=== PATIENT | male | born 1995 | race Caucasian/White ===

== ENCOUNTER 2020-06-05 03:04 | Inpatient (IN) | payer OTHER ==
[~2020-06-05] VITALS: Ht 188 cm; Wt 71.9 kg
[2020-06-05 03:22] LABS: PO2 Arterial 306 mmHg (80-100)
[2020-06-05 03:23] LABS: PCO2 Arterial 103 mmHg (35-45); pH Blood Arterial 6.86 (7.35-7.45)
[2020-06-05 03:25] LABS: Calcium, Ionized (POC) 1.23 mmol/L (1.10-1.46); Chloride (POC) 102 mmol/L (98-108); Creatinine (POC) 1.4 mg/dL (0.8-1.3); Glucose (ISTAT POC) 216 mg/dL (70-99); Hemoglobin (POC) 14.6 g/dL (13.5-17.5); Potassium (POC) 4.7 mmol/L (3.5-5.5); Sodium (POC) 135 mmol/L (135-148); Total CO2 (POC) 21 mmol/L (21-32)
[2020-06-05 03:33] LABS: BASOPHILS ABSOLUTE AUTO 0.18 K/mm3 (0.00-0.23); BASOPHILS PERCENT AUTO 2 % (0-2); EOSINOPHILS ABSOLUTE AUTO 1.13 K/mm3 (0.00-0.68); EOSINOPHILS PERCENT AUTO 9 % (0-6); Hematocrit 46.7 % (37.0-53.0); Hemoglobin 13.4 g/dL (13.5-17.5); IMMATURE GRAN ABSOLUTE AUTO 0.16 K/mm3 (0.00-0.10); IMMATURE GRAN PERCENT AUTO 1 % (0-1); LYMPHOCYTES ABSOLUTE AUTO 5.39 K/mm3 (0.84-5.20); LYMPHOCYTES PERCENT AUTO 45 % (21-46); MONOCYTES ABSOLUTE AUTO 0.89 K/mm3 (0.16-1.47); MONOCYTES PERCENT AUTO 7 % (4-13); Mean Corpuscular HGB 28.3 pg (26.0-34.0); Mean Corpuscular HGB Conc 28.7 g/dL (31.5-36.5); Mean Corpuscular Volume 99 fL (80-100); NEUTROPHILS ABSOLUTE AUTO 4.31 K/mm3 (1.96-9.15); NEUTROPHILS PERCENT AUTO 36 % (41-73); Platelet Count 332 K/mm3 (150-400); RDW Coefficient Variation 12.7 % (11.7-14.2); RDW Standard Deviation 46.4 fL (35.1-46.3); Red Blood Cell Count 4.74 M/mm3 (4.30-5.90); White Blood Cell Count 12.06 K/mm3 (4.00-11.30)
[2020-06-05 03:46] LABS: Source, Urine Catheter
[2020-06-05 03:48] LABS: Alanine Aminotransfer (ALT/SGP 86 U/L (12-78); Albumin, Blood 3.1 g/dL (3.4-5.0); Albumin/Globulin Ratio 0.8 (0.8-1.8); Alk Phos 140 U/L (50-136); Anion Gap 16 mmol/L (6-16); Aspartate Aminotrans (AST/SGOT 114 U/L (12-37); Bilirubin, Total 0.5 mg/dL (0.1-1.0); Blood Urea Nitrogen 20 mg/dL (8-24); Bun/Creatinine Ratio 15.7 (12.0-20.0); CO2, Blood 19 mmol/L (21-32); Chloride, Blood 104 mmol/L (98-108); Creatinine, Blood 1.27 mg/dL (0.60-1.20); Globulin, Blood 3.7 g/dL (2.2-4.0); Glomerular Filtration Rate 53 (60-); Glucose, Blood 227 mg/dL (70-99); Potassium, Blood 4.8 mmol/L (3.5-5.5); Sodium, Blood 139 mmol/L (136-145); Total Protein, Blood 6.8 g/dL (6.4-8.2); Troponin I <0.015 ng/mL (0.000-0.040)
[2020-06-05 03:48] LABS: Bilirubin, Urine Neg (Neg); Blood, Urine 3+ (Neg); Glucose Qualitative, Urine Neg (Neg); Ketones, Urine 1+ (Neg); Leukocyte Esterase, Urine Neg (Neg); Nitrite, Urine Neg (Neg); Protein, Urine 1+ (Neg); Specific Gravity, Urine 1.025 (1.003-1.022); Urobilinogen, Urine NORM (Normal)
[2020-06-05 03:51] LABS: Appearance, Urine Clear (Clear); Color, Urine Yellow (P-Yellow)
[2020-06-05 04:01] LABS: U Amphetamine Screen DETECTED; U Barbituate Screen Not Detected; U Benzodiazapine Screen Not Detected; U Buprenorphine Screen Not Detected; U Cannabinoids Screen Not Detected; U Cocaine Screen Not Detected; U Methadone Screen Not Detected; U Methamphetamine Screen DETECTED; U Opiates Screen DETECTED; U Oxycodone Screen Not Detected; U Phencyclidine Screen Not Detected; U Propoxyphene Screen Not Detected
[2020-06-05 04:02] LABS: Amorphous Light (0-Heavy); Bacteria Mod /hpf; Spermatozoa Few /hpf; Squamous Epithelial Cells Few /hpf (Few); White Blood Cells, Urine 0-2 /hpf (0-5)
[2020-06-05 04:06] LABS: PCO2 Arterial 59.9 mmHg (35-45); PO2 Arterial 80.3 mmHg (80-100); pH Blood Arterial 7.21 (7.35-7.45)
[2020-06-05 04:07] LABS: CPK Creatine Kinase 663 U/L (39-308)
[2020-06-05 04:51] LABS: Influenza A, PCR Negative (NEGATIVE); Influenza B, PCR Negative (NEGATIVE); Resp Syncytial Virus, PCR Negative (NEGATIVE); SARS-Cov-2 (COVID-19) PCR, MMC Negative (NEGATIVE)
[2020-06-05 05:40] LABS: Calcium, Ionized (POC) 1.01 mmol/L (1.10-1.46); Chloride (POC) 102 mmol/L (98-108); Creatinine (POC) 1.1 mg/dL (0.8-1.3); Glucose (ISTAT POC) 111 mg/dL (70-99); Hemoglobin (POC) 11.6 g/dL (13.5-17.5); Potassium (POC) 4.5 mmol/L (3.5-5.5); Sodium (POC) 140 mmol/L (135-148); Total CO2 (POC) 25 mmol/L (21-32)
--- NOTE | 2020-06-05 07:06 | NUR ---
PT ARRRIVED TO UNIT AT 0628 VIA STRETCHER. RECEVIED REPORT FROM PARTH JONES RN. PT IS INTUBATED, ETT 7.0, 27 AT THE LIP PER REPORT. PT IS SEDATED WITH 20MCG/KG/MIN OF PROPOFOL. LUNG SOUNDS ARE WHEZZY T/O. PT CONNECTED TO HEART MONITOR, SBP AT 160, HR IN THE 100'S. OGT TO LIS, COFFEE GROUND EMESIS NOTED. CENTRAL LINE TO RIGHT IJ. TEMP MOSS PATENT AND DRAINING TO GRAVITY. ZOSYN AND PROTONIX INITIATED. BEDSIDE REPORT GIVEN TO PIYUSH DYKES AT 0650.
[2020-06-05 07:32] LABS: PCO2 Arterial 46.6 mmHg (35-45); PO2 Arterial 78.5 mmHg (80-100); pH Blood Arterial 7.37 (7.35-7.45)
--- NOTE | 2020-06-05 07:34 | NUR ---
Received in room report from Tory Bautista. patient is intubated and sedated. He has 7.0 ET and 27 cm at lips with vent settings of AC 20, TV 500, FiO2 35% and PEEP 5.0 with sats >90%. He has frequent jerking motion of upper body head and extremities. He is very stiff with care. He had large liquid brown BM and placed rectal tube after 3 clean ups of liquid stool. He follows no directions and does not react to verbal or painful stimuli. He has bilateral 18 ga IV's AC's dressings intact and sites WNL's and are flushed and SL'd. He has 18ga LINDA IV and is infusing D5 Bicarb at 150 ml/hr. He has RIJ dressing intact and site WNL's and is infusing Propofol at 40 mcg/kg/min, and Protonix at 10ml/hr. He has 16 Fr Richardson draining to gravity clear yellow urine and temp of 97.6.
--- NOTE | 2020-06-05 10:39 | NUR ---
Dr John consulted and was in room assessing patient. She cjanges AC to 16 and dc D5 bicarb and Protonix. He remains on Propofol and vent settings AC 16, TV 500, FiO2 35, PEEP 5.0 and sats >90%. He continues to hiccup and decorticate posture. Richardson continues to have good output yellow urine to gravity.
--- NOTE | 2020-06-05 11:16 | NUR ---
Echocardiogram completed.
--- NOTE | 2020-06-05 11:20 | NUR ---
Patient LE starting flailing and vent alarm went of and ran into room and he was constantly hiccuping, medicated with Ativan per MAR and reduced slightly. Pupils now are 4 and very sluggish. Rectal tube continues with brown liquid stool. He remains tachy low 100 and systolic 120-130. No vent setting changes and sats >90%.
--- NOTE | 2020-06-05 12:00 | NUR ---
Patient remains sitting up in bed with CPAP in place same settings. He ate 100% of lunch and is watching TV with sats >90%. Using urinal appropriately had 300 mls sohma colored urine. VSS, See EMR. Patient denies any current needs or pain intervention. Dr John was in seeing patient, no new orders.
[2020-06-05 12:50] LABS: Creatine Kinase MB 11.2 ng/mL (0.0-3.6); Creatine Kinase MB Index 1.4 (0.0-4.0)
--- NOTE | 2020-06-05 13:32 | NUR ---
Patient wants to remain up in bed with CPAP in place and will prone self in a little bit. VSS, See EMR. No other significant changes.
--- NOTE | 2020-06-05 14:00 | NUR ---
No significant changes with patient. TF started , Pivot 1.5 at 25 ml with 30 ml water flushes q4. Patients pupils are 4 and still sluggish. Hiccups less and less posturing dicorticate. VSS, See EMR.
--- NOTE | 2020-06-05 16:38 | NUR ---
No chnages in vent or gtt setting. Patient has been rest quietly. he has occassional hiccups and intermitent dicorticate posture movements. He has Propofol at 40 mcg/kg/min, ABX. TF pivot 1.5 at 25ml/hr. Richardson and rectal tube remains patent. His temp 98.8
--- NOTE | 2020-06-05 19:00 | NUR ---
ASSUMED CARE NOTE: ASSUMED CARE OF PT AT 1900, RECEVIED REPORT FROM PIYUSH DYKES. PT IS INTUBATED AND SEDATED WITH PROPOFOL AT 40MCG/KG/MIN. VENT SETTINGS AT AC16/500/5/35% 96% SPO2. SMALL AMOUNT OF CLEAR SECRETIONS NOTED VIA ETT. PT GRIMICES DURING ORAL CARE. PT WILL BECOME AGITATED WITH TURNS, WILL BEGIN TO COUGH AND LEAN FORWARD FORCEFULLY. WILL SETTLE DOWN ON HIS OWN AFTER A FEW MINUTES. PT HAS A TWITCH T/O BODY EVERY ONCE IN AWHILE, PHYSICAN AWARE. PT IS IN SINUS TACH HR BETWEEN 100-105. TUBE FEED RUNNING AT 25ML/HR, WILL INCREASE TO GOAL RATE OF 35ML/HR AT 2300. RESIDUAL LESS THAN 5ML. PT REQUIRES FREQUENT ORAL SUCTION, EXCESS OF SALIVA NOTED. BT HYPERACTIVE IN ALL QUADRANTS. RECTAL TUBE IN PLACE, DRAINING LIQUID BROWN STOOL. MOSS PATNET, DRAINING YELLOW CLEAR URINE. SCD'S IN PLACE. WILL CONTINUE TO MONITOR PT T/O SHIFT.
[2020-06-05 20:09] LABS: Creatine Kinase MB Index 1.3 (0.0-4.0)
--- NOTE | 2020-06-06 02:45 | NUR ---
UPDATE: PT BECAME AGITATED WITH TURN, UNABLE TO TOLERATE VENT, COUGHING. DID NOT OPEN EYES, UNABLE TO FOLLOW COMMANDS. ATIVAN GIVEN FOR VENT COMPLIANCE AND PROPOFOL INCREASED TO 50MCG/KG/MIN.
[2020-06-06 04:16] LABS: BASOPHILS ABSOLUTE AUTO 0.04 K/mm3 (0.00-0.23); BASOPHILS PERCENT AUTO 0 % (0-2); EOSINOPHILS ABSOLUTE AUTO 0.25 K/mm3 (0.00-0.68); EOSINOPHILS PERCENT AUTO 2 % (0-6); Hematocrit 39.4 % (37.0-53.0); Hemoglobin 12.8 g/dL (13.5-17.5); IMMATURE GRAN ABSOLUTE AUTO 0.03 K/mm3 (0.00-0.10); IMMATURE GRAN PERCENT AUTO 0 % (0-1); LYMPHOCYTES PERCENT AUTO 9 % (21-46); MONOCYTES ABSOLUTE AUTO 0.64 K/mm3 (0.16-1.47); MONOCYTES PERCENT AUTO 6 % (4-13); Mean Corpuscular HGB 28.3 pg (26.0-34.0); Mean Corpuscular HGB Conc 32.5 g/dL (31.5-36.5); Mean Platelet Volume 8.6 fL (9.1-12.4); NEUTROPHILS ABSOLUTE AUTO 9.07 K/mm3 (1.96-9.15); NEUTROPHILS PERCENT AUTO 82 % (41-73); Platelet Count 252 K/mm3 (150-400); RDW Coefficient Variation 13.2 % (11.7-14.2); RDW Standard Deviation 41.2 fL (35.1-46.3); Red Blood Cell Count 4.52 M/mm3 (4.30-5.90); White Blood Cell Count 11.03 K/mm3 (4.00-11.30)
[2020-06-06 04:19] LABS: Mean Corpuscular Volume 87 fL (80-100)
[2020-06-06 04:28] LABS: Base Excess Venous 4.6 mmol/L; Bicarbonate Venous 27.7 mmol/L (24.0-30.0); PCO2 Venous 48.2 mmHg (38-42); PO2 Venous 113 mmHg (38-42)
[2020-06-06 04:33] LABS: Alanine Aminotransfer (ALT/SGP 102 U/L (12-78); Albumin, Blood 2.8 g/dL (3.4-5.0); Albumin/Globulin Ratio 0.8 (0.8-1.8); Alk Phos 160 U/L (50-136); Anion Gap 6 mmol/L (6-16); Aspartate Aminotrans (AST/SGOT 68 U/L (12-37); Bilirubin, Total 0.7 mg/dL (0.1-1.0); Blood Urea Nitrogen 12 mg/dL (8-24); Bun/Creatinine Ratio 14.4 (12.0-20.0); CO2, Blood 30 mmol/L (21-32); Calcium, Blood 8.2 mg/dL (8.5-10.1); Chloride, Blood 105 mmol/L (98-108); Creatinine, Blood 0.83 mg/dL (0.60-1.20); Globulin, Blood 3.6 g/dL (2.2-4.0); Glomerular Filtration Rate >60 (60-); Glucose, Blood 131 mg/dL (70-99); Magnesium, Blood 2.1 mg/dL (1.6-2.4); Phosphorus, Blood 3.7 mg/dL (2.5-4.9); Potassium, Blood 4.2 mmol/L (3.5-5.5); Sodium, Blood 141 mmol/L (136-145); Total Protein, Blood 6.4 g/dL (6.4-8.2)
--- NOTE | 2020-06-06 06:03 | NUR ---
SHIFT SUMMARY: SEE PREVIOUS NOTES. PT CONTINUES TO BE SEDATED WITH PROPOFOL AT 50MCG/KG/MIN. PT RECEVIED ATIVAN ONCE THIS SHIFT FOR AGITATION, GOOD EFFECT. PT CONTINUES TO TWITCH T/O ALL EXTREMITIES FROM TIME TO TIME. RESPONSIVE TO PAINFUL STIMILI. NO SEDATION VACATION PER . PT CONTINUES TO BE ON VENT WITH NO CHANGES TO SETTINGS AC16/500/5/25% NO SECRETIONS NOTED VIA ETT. PT HAVING LARGE AMOUNTS OF CLEAR ORAL SECRETIONS. PT HAS BEEN IN SINUS TACH T/O SHIFT HR BETWEEN 100-110. TUBE FEEDS RUNNING AT GOAL, 35ML/HR, 0 RESIDUAL NOTED AT 0400. MOSS PATENT DRAINING TO GRAVITY, CLEAR YELLOW IN COLOR, 2000ML OUTPUT. SCD'S IN PLACE. CENTRAL LINE TO RIJ DRESSING CHANGED THIS SHIFT. WILL CONTINUE TO MONITOR PT UNTIL REPORT IS GIVEN TO ONCOMING SHIFT.
--- NOTE | 2020-06-06 07:50 | NUR ---
PT SEDATED ON PROPOFOL AT 50MCG FOR [facility] VENT. AC16, 500, PEEP 5, FIO2 @ 25%. PT HAS NORMAL PLANTAR REFLEX, WITHDRAWALS FROM PAIN. PT HAS COUGH, SWALLOW, MILD GAG. PT HAS BILAT NYSTAGMUS. PUPILS ARE SLUGGISH; PT HAS +DOLLS EYES BUT ARE SLOW TO MOVE. PT IS EDEMATOUS TO ALL EXTREMITIES. HANDS ARE DUSKY BUT WARM. LUNGS W INSP AND EXP WHEEZES T/O. SATS >98%. + BT'S W MINIMAL RESIDUAL. PT IN SINUS TACH RATE ~105, BP STABLE. MOSS TEMP PROBE 99.5. WILL PLACE PT ON SED VAC THIS AM. DR REED IN THIS AM; FULL UPDATE GIVEN. NOTIFIED THAT PT IS ON PO PROTONIX THAT CAN NOT BE CRUSHED, AND THAT THERE ARE NO ORDERS FOR NEB TX.
--- NOTE | 2020-06-06 08:52 | NUR ---
DR HOLMAN IN UNIT AND GIVEN UPDATE. PROPOFOL DECREASED TO 20MCG.
--- NOTE | 2020-06-06 09:03 | NUR ---
PROPOFOL PLACED ON STANDBY. AFTER 5 MIN, CHIN TWITCHING, EYES DOWNWARD RIGHT GAZE W INCREASED NYSTAMUS. DOES NOT FOLLOW DIRECTIONS AT THIS TIME
--- NOTE | 2020-06-06 09:47 | NUR ---
DR HOLMAN IN TO SEE PT. PT NO LONGER SHOWS PLANTER REFLEX. NO MOVEMENT TO EXTREMITIES NOTED. EYES REMAIN UNCHANGED FROM PREVIOUS ASSESSMENT. EEG TO BE ORDERED. PROPOFOL REMAINS OFF.
--- NOTE | 2020-06-06 10:28 | NUR ---
Telephone call received from the principals grandmother. She was emotionally distraught and reqesting information as to the principals clinical situation and recovery potential. I offered therapeutic listening and words of consolation and encouragement. She responded favorably to the attention and showed clear signs of de-escelation. I provided her with the ICU Nursing Station contact number and asked her to have her daughter (the principals mother) reach out and establish contact with the hospital to collect an update on her grandsons status. She was very appreciative of the support and direction.
--- NOTE | 2020-06-06 10:30 | NUR ---
DONOR LINE CONTACTED. NO CHANGE IN NEURO ASSESSMENT. INVENTORY SPECIALIST NOTIFIED. CT SCAN OF HEAD TO BE REPEATED TOMORROW.
--- NOTE | 2020-06-06 10:48 | NUR ---
PT HAD SEVERE COUGHING/GAGGING REACTION TO TURNING PT. PT RETCHING, FACE/NECK TURNED BRIGHT RED, COPIOUS CLEAR VISCOUS SECRETIONS SUNCTIONED FROM MOUTH AND ETT. PT DID NOT MOVE ANY EXTRMITIES DURING EVENT, TORSO DID FLEX FORWARD. PT STOPPED COUGHING WITHIN 2 MIN AFTER TURN. NO OTHER CHANGE IN NEURO ASSESSMENT.
--- NOTE | 2020-06-06 11:40 | NUR ---
PT POSITIONED SUPINE W HOB AT 30 FOR EEG. CORN POPPER AT BEDSIDE. PT'S MOTHER GIVEN FULL UPDATE OVER PHONE AND WILL BE IN TODAY TO SEE HER SON. NO CHANGE IN NEURO ASSESSMENT.
--- NOTE | 2020-06-06 13:34 | NUR ---
EEG COMPLETE. REPORT FAXED TO DR BARRIGA. PT HAS TEMP 101.3; DR HOLMAN NOTIFIED, MAY BE CENTRAL RELATED TEMP. POSSIBLE LP PLANNED FOR TOMORROW; LOVENOX TO BE HELD TOMORROW. TYLENOL TO BE ORDERED. ICE PACKS AND FAN PLACED TO PT.
--- NOTE | 2020-06-06 14:25 | NUR ---
DR RODRIGUEZ CALLED DR HOLMAN R/T EEG. POSSIBLE SEIZURE ACTIVITY. ATIVAN 4MG IVP GIVEN PER JOSH PEPE TO BE GIVEN.
--- NOTE | 2020-06-06 14:29 | NUR ---
IMMEDIATELY AFTER ATIVAN GIVEN, CHIN STOPPED QUIVERING, EYES RETURNED TO A MORE NEUTRAL POSITION
--- NOTE | 2020-06-06 16:14 | NUR ---
Spiritual care note: I was present when mom, April, arrived. She was quite tearful and asked a lot of questions. Stayed with April as physician explained Jenaro's brain injury. April appeared to understand. Prayer provided, as well as theraputic listening to life story. Gentle financial health counselor was well-recieved. We had an easy rapport and I will remain available. For now, family is waiting another day or so to see if Jenaro improves.
--- NOTE | 2020-06-06 17:59 | NUR ---
ATVAN 2MG GIVEN FOR CHIN/JAW QUIVERING/TWITCHING WITH EYES IN DOWNWARD RIGHT GAZE/NYSTAGMUS/TWITCHING. FAMILY AT BEDSIDE.
--- NOTE | 2020-06-06 19:00 | NUR ---
ASSUMED CARE NOTE: ASSUMED CARE OF PT AT 1900, RECEVIED REPORT FROM DEEJAY DYKES. PT IS NOT SEDATED, NO RESPONSE TO VERBAL/PAINFUL STIMULI. PT HAS CORNEAL REFLEX, GAG REFLEX, PLANTER REFLEX NOTED. PT IS ON VENT WITH SETTINGS AC16/500/5/30% , LARGE AMOUNTS OF THICK WHITE SECRETIONS. LARGE AMOUNTS OF CLEAR ORAL SECRETIONS NOTED. PT IN SINUS TACH WITH HR IN THE 110'S. TF RUNNING AT 35ML/HR, RESIDUAL LESS THAN 10 AT THIS TIME. MOSS PATENT DRAINING TO GRAVITY. RECTAL TUBE IN PLACE, IF NO BM NOTED, WILL DC. BED AT LOWEST LEVEL. WILL CONTINUE TO MONITOR PT.
--- NOTE | 2020-06-06 19:28 | NUR ---
SOME IMPROVEMENT OF EYE POSITION AND JAW TREMORS AFTER ATIVAN. BEDSIDE REPORT GIVEN.
--- NOTE | 2020-06-07 | NUR ---
UPDATE: BILAT SWR DC'd DUE TO PT NOT MOVING IN BED, OR RESPONDING TO VERBAL OR PAINFUL STIMILI. PT CONTINUES TO HAVE LARGE AMOUNTS OF SECRETIONS VIA ETT. VENT SETTINGS AC20/500/5/25%, FiO2 AT 93% PT HAS BEEN MEDICATED WITH ATIVAN THIS SHIFT, FOR SEZUIRE ACTIVITY. TUBE FEED TUBING AND CANISTER CHANGED. BED BATH COMPLETE.
--- NOTE | 2020-06-07 03:15 | NUR ---
PT TO HEAD CT SCAN WITH THIS NURSE AND RT AT BEDSIDE. PT BACK TO ROOM AT 0330.
[2020-06-07 04:31] LABS: BASOPHILS ABSOLUTE AUTO 0.05 K/mm3 (0.00-0.23); BASOPHILS PERCENT AUTO 0 % (0-2); EOSINOPHILS ABSOLUTE AUTO 0.07 K/mm3 (0.00-0.68); EOSINOPHILS PERCENT AUTO 1 % (0-6); Hematocrit 41.6 % (37.0-53.0); Hemoglobin 13.2 g/dL (13.5-17.5); IMMATURE GRAN ABSOLUTE AUTO 0.03 K/mm3 (0.00-0.10); IMMATURE GRAN PERCENT AUTO 0 % (0-1); LYMPHOCYTES ABSOLUTE AUTO 1.12 K/mm3 (0.84-5.20); LYMPHOCYTES PERCENT AUTO 10 % (21-46); MONOCYTES ABSOLUTE AUTO 0.81 K/mm3 (0.16-1.47); MONOCYTES PERCENT AUTO 7 % (4-13); Mean Corpuscular HGB 27.7 pg (26.0-34.0); Mean Corpuscular HGB Conc 31.7 g/dL (31.5-36.5); Mean Corpuscular Volume 87 fL (80-100); Mean Platelet Volume 8.6 fL (9.1-12.4); NEUTROPHILS ABSOLUTE AUTO 9.41 K/mm3 (1.96-9.15); NEUTROPHILS PERCENT AUTO 82 % (41-73); Platelet Count 294 K/mm3 (150-400); RDW Coefficient Variation 13.4 % (11.7-14.2); RDW Standard Deviation 43.1 fL (35.1-46.3); Red Blood Cell Count 4.76 M/mm3 (4.30-5.90); White Blood Cell Count 11.49 K/mm3 (4.00-11.30)
[2020-06-07 04:50] LABS: PCO2 Arterial 35.9 mmHg (35-45); pH Blood Arterial 7.44 (7.35-7.45)
[2020-06-07 04:50] LABS: Anion Gap 6 mmol/L (6-16); Blood Urea Nitrogen 12 mg/dL (8-24); Bun/Creatinine Ratio 13.5 (12.0-20.0); CO2, Blood 25 mmol/L (21-32); Calcium, Blood 8.4 mg/dL (8.5-10.1); Chloride, Blood 107 mmol/L (98-108); Creatinine, Blood 0.89 mg/dL (0.60-1.20); Glomerular Filtration Rate >60 (60-); Glucose, Blood 120 mg/dL (70-99); Magnesium, Blood 1.9 mg/dL (1.6-2.4); Phosphorus, Blood 3.7 mg/dL (2.5-4.9); Potassium, Blood 4.7 mmol/L (3.5-5.5); Sodium, Blood 138 mmol/L (136-145)
--- NOTE | 2020-06-07 05:28 | NUR ---
SHIFT SUMMARY: SEE PREVIOUS NOTES. NO CHANGES WITH NEURO STATUS. VENT SETTINGS AC16/500/5/25% PT HAVING SIGNIFICANT AMOUNT OF SECRETIONS VIA ETT AND ORAL. PT WILL DESATURATED INTO THE 80% WHEN NEEDED TO BE SUCTIONED, RECOVERS QUICKLY. PT HAS BEEN IN SINUS TACH WITH HR BETWEEN 100-120. BP STABLE. PT RECEVIED ACETAMINOPHEN TWICE THIS SHIFT, TMAX 101.3 TUBE FEED RUNNING AT GOAL 35ML/HR, HIGHEST RESIDUAL 40ML. RECTAL TUBE DC'd THIS SHIFT. FOELY PATENT DRAINING TO GRAVITY, CLEAR YELLOW URINE. WILL CONTINUE TO MONITOR PT UNTIL REPORT IS GIVEN TO ONCOMING SHIFT.
--- NOTE | 2020-06-07 09:12 | NUR ---
PT ON [facility] VENT FOR AIRWAY PROTECTION FOLLOWING CARDIAC ARREST W ANOXIC BRAIN INJURY. PT UNRESTRAINED. NO SPONTANEOUS MOVEMENT NOTED TO EXTREMITIES. PT DOES WITHDRAWAL FOOT WHEN PLANTAR REFLEX ELICTED, TOES DO NOT FAN OUT OR LFEX. PT HAS + COUGH, GAG, AND SWALLOW. PT HAS STRONG COUGH, GAG RESPONSE W FLEXION AT HIPS W ORAL CARE/SUCTIONING. COPIOUS AMTS OF VISCOUS CLEAR SECRETIONS SUCTIONED FROM MOUTH AND ETT. LUNGS COARSE T/O WITH SCATTERED INSP AND EXP WHEEEZES. FIO2 INCREASED TO 30% FIO2 PO2 OF 62. SATS >93%. EYES AT TIMES IN A DOWNWARD RIGHT GAZE, THEY ARE IN A NEUTRAL POSITION NOW W NYSTAGMUS. PUPILS ARE 3/3MM AND VERY SLUGGISH W MINIMAL REACTION TO LIGHT. DR HOLMAN IN UNIT, HEAD CT REVIEWED. LP WILL NOT BE PERFORMED TODAY; LOVENOX TO BE HELD PER DR HOLMAN.
--- NOTE | 2020-06-07 12:17 | NUR ---
12-ASSESSMENT. PT DOES NOT RESPOND TO PAIN. POSSIBLE GRIMACING WITH DEEP SUCTIONING; THIS IS NOT A CHANGE. PT REMAINS UNRESTRAINED AND ON MECH VENT. PT HAS NOT RECEIVED SEDATIVES THIS SHIFT. PT TOLERATING TF W ZERO RESIDUAL AT NOON. TYLENOL GIVEN FOR TEMP 101.1. FAN ALSO PLACED ON PT.
--- NOTE | 2020-06-07 13:50 | NUR ---
PT INCONTINENT OF LARGE LIQUID BROWN STOOL. RECTAL TUBE PLACED. PT HAD SEVERE COUGHING/GAGGING/WRETCHING W TURN. COPIOUS SECRETIONS SX'D FROM LUNGS. SATS DECREASED TO 89%. FIO2 INCREASED TO 35%. SATS 91% NOW. PT RESP RATE 20-30'S. NASAL FLARING, JAW TWITCHING, ABD TWITCHING/QUIVERING NOTED. EYES IN HARD RIGHT DOWNWARD GAZE W NYSTAGMUS. ATIVAN 2MG GIVEN W SOME IMPROVMENT IN SYMPTOMS.
--- NOTE | 2020-06-07 15:06 | NUR ---
Supportive Visit Family arriving to visit with Pt. Bedside RN discusses condition and results of CT. Pt's mother becomes emotionaly distraught. Emotional support offered. Engaged in therapeutic listening and allowed family to express fears and concerns. Continued therapeutic listening. Discussed case with Dr Garland and Bedside RN Ashwini. Palliative Care will remain available for supportive visits.
--- NOTE | 2020-06-07 15:15 | NUR ---
MULTIPLE FAMILY MEMBERS AT BEDSIDE. PASTORAL CARE AND PALLIATIVE CARE AT BEDSIDE. PT'S MOTHER DISTRAUGHT AND TEARFUL OVER HEAD CT SCAN RESULTS. PT'S MOTHER NOTIFIED OF PLAN; TO CONTINUE SUPPORTIVE CARE AND REPEAT HEAD CT TOMORROW, AT THAT TIME DR MAY BE ABLE TO PROVIDE MORE DEFINITIVE PROGNOSIS.
--- NOTE | 2020-06-07 15:50 | NUR ---
Spiritual care visit conducted. Patient's family are gathered around and emotioanally all over the map. They are yelling obscenities, asking me to pray, yelling at God and then at the patient to "Get up!" I provide a calming presence and prayer. Patient's mom seems to have very few coping skills but ultimately she just wants her son to be well and is heart-broken by the state he is in. JANIA Maradiaga and JANIA Francisco do an amazing job of communicating calmly and simply to answer questions and give updates on patient's condition. The family respond as well as can be expected in processes the information in their own way. I will continue to remain available to patient's family.
--- NOTE | 2020-06-07 17:25 | NUR ---
PT GIVEN ATIVAN 2MG FOR SIGNIFICANTLY INCREASED NYSTAGMUS TO BILAT EYES W DOWNWARD FIXED GAZE AND TREMULOUS BODY. THESE SYMPTOMS IMPROVED MINUTES AFTER ATIVAN GIVEN. COPIOUS AMTS OF SECRETIONS SX'D FROM PT T/O SHIFT. BP, HR, RHTHYM, AND SATS HAVE REMAINED STABLE T/O SHIFT. TMAX 101.1. MULTIPLE FAMILY MEMBERS AT BEDSIDE T/O SHIFT. PT HAVE REPEAT HEAD CT IN AM. NEURO ASSESSMENT HAS REMAINED UNCHANGED FROM THIS AM.
[2020-06-08 03:58] LABS: Alanine Aminotransfer (ALT/SGP 76 U/L (12-78); Albumin, Blood 2.8 g/dL (3.4-5.0); Albumin/Globulin Ratio 0.7 (0.8-1.8); Alk Phos 146 U/L (50-136); Anion Gap 6 mmol/L (6-16); Aspartate Aminotrans (AST/SGOT 51 U/L (12-37); Bilirubin, Total 1.1 mg/dL (0.1-1.0); Blood Urea Nitrogen 16 mg/dL (8-24); Bun/Creatinine Ratio 21.1 (12.0-20.0); CO2, Blood 26 mmol/L (21-32); Calcium, Blood 8.3 mg/dL (8.5-10.1); Chloride, Blood 107 mmol/L (98-108); Creatinine, Blood 0.76 mg/dL (0.60-1.20); Globulin, Blood 4.1 g/dL (2.2-4.0); Glomerular Filtration Rate >60 (60-); Glucose, Blood 122 mg/dL (70-99); Magnesium, Blood 1.9 mg/dL (1.6-2.4); Phosphorus, Blood 4.6 mg/dL (2.5-4.9); Potassium, Blood 4.6 mmol/L (3.5-5.5); Sodium, Blood 139 mmol/L (136-145); Total Protein, Blood 6.9 g/dL (6.4-8.2)
[2020-06-08 05:17] LABS: PCO2 Arterial 34.7 mmHg (35-45); PO2 Arterial 66.5 mmHg (80-100); pH Blood Arterial 7.44 (7.35-7.45)
--- NOTE | 2020-06-08 05:18 | NUR ---
SHIFT SUMMARY AFTER INITIAL ASSESSMENT OF PATIENT HAVING ABSOLUTELY NO REFLEXES TO CARE, PT. DID HAVE NOTABLE COUGH WITH ETT SUCTIONING, SOME INVOLUNTARY MOVEMENT ASSOCIATED WITH THE COUGHING INCLUDING HIP FLEXION, SLIGHT UPPER EXTREMITY FLEXION, AND NECK EXTENSION. PUPILS REMAIN EQUAL IN SIZE, ROUND, REACTIVE TO LIGHT. DID HAVE X2 SEIZURE EPISODES, BOTH TIMES NOTED NYSTAGMUS, FIXED GAZE DOWN AND TO THE RIGHT, AND JAW QUIVERING. GAVE ATIVAN, SYMPTOMS RESIDED AFTER A COUPLE OF MINUTES. TOOK PATIENT TO CT AROUND 02:15 THIS MORNING HELP WAS READILY AVAILABLE, AWAITING RESULTS. HAVE MAINTAINED PT. OUT OF RESTRAINTS THERE IS NO CONTROLLED OR PURPOSFUL MUSCLE MOVEMENT. ASSESSMENT IS CHARTED. VSS. WILL CONTINUE TO MONITOR.
--- NOTE | 2020-06-08 07:21 | NUR ---
Received report from Dhaval DYKES. Estelle is on right side with HOB 30 degrees. He is intubated with no sedation. He has 7.0 ET and is 27cm at lips, with vent settings of AC 16, TV 500, FiO2 35%, PEEP 5.0 and sats 94%. He shows no purposeful movements, pupils 3's and sluggish and withdrawls with oral care. He has bilateral 18 ga IV's in AC's both dressings intact and sites WNL's and have been flushed and SL'd. He has 18ga LINDA IV dressing intact and site WNL's and is flushed and SL'd. He has RIJ, dressing intact and site WNL's and is infusing NS TKO. He has 16Fr Temp rdz draining to gravity light soham colored urine. Rectal tube in place for brown liquid stool. He has OG infusing TF Pivot 1.5 at goal rate 45 ml/hr and 30 ml water flushes Q4, residuals <50 ml's. He has fever of 100.6. SCD bilaterally to LE's.
--- NOTE | 2020-06-08 09:39 | NUR ---
No changes with patient. He continues to show no signs of purposeful movement. VSS, See EMR. He remains out of restraints. NS TKO continues. NO vent or gtt setting changes.
--- NOTE | 2020-06-08 11:30 | NUR ---
EEG ordered by Dr Houston per Dr Pandya. No significant changes with patient. Temp increaseing and at 101.6. patient withdrawls with oral care and continues with abdominal tremors. HR 130 and systolic 118. Increased FiO2 on vent to 45% for sats high 80's low 90's.
--- NOTE | 2020-06-08 15:30 | NUR ---
EEG done and Family is back and at bedside. Temp increased to 102 and adding Ice pack to arm pits and groin. Patient had leakage of green stool and changed linen and cleaned patient up. Fio2 increased to 55% and notified RT.
--- NOTE | 2020-06-08 18:00 | NUR ---
Dr Pandya in room with mother and sister giving update. Temp got as high as 102 .9 and has reduced to 101.4 with Tylenol, ice packs and fan. No other significant changes Vent setting adjusted by RT to AC 16, TV 500, FiO2 50% and PEEP 10 with sats >90%. Richardson has 1000 soham urine.
--- NOTE | 2020-06-08 18:02 | NUR ---
Spiritual care note: I met with Ruba and several "family" members at bedside. Ruba is adamant that Jenaro will get better. She denies using and tells me she is in contact with her AA sponser often. She was deeply appreciative of prayer and gentle sales counselor. She and her "boys" are awaiting Nerologist visit later this evening. If they are given bad news, having a executive chairman of the board present may be helpful. I will remain available.
--- NOTE | 2020-06-08 22:00 | NUR ---
ASSUMED CARE AT 1900 PT MOTHER AND SIGNIFICANT OTHER AT BED SIDE DISCUSSING CARE WITH DR BARRIGA. PT LAYING IN BED INTUBATED WITH VENT SETTINGS AC 16, TV 500, PEEP 10, FIO2 50%. PT CANNOT FOLLOW DIRECTIONS, DOES NOT HAVE A GAG, AND DOES NOT HAVE PURPOSFUL MOVEMENT. PERRLA. TEMP 101.1. HR 110-115. SBP 140-150. PIVOT INFUSING AT 45ML/HR VIA OG WITH 30ML WATER FLUSHES Q4HR. MOSS PATENT AND DRAINING TO GRAVITY. RECTAL TUBE PATENT, DRAINING TO GRAVITY WITH SOME STOOL LEAKAGE. SEE SHIFT ASSESSMENT FOR FULL ASSESSMENT.
[2020-06-09 04:36] LABS: BASOPHILS ABSOLUTE AUTO 0.08 K/mm3 (0.00-0.23); BASOPHILS PERCENT AUTO 1 % (0-2); EOSINOPHILS ABSOLUTE AUTO 0.25 K/mm3 (0.00-0.68); EOSINOPHILS PERCENT AUTO 2 % (0-6); Hematocrit 45.2 % (37.0-53.0); Hemoglobin 14.3 g/dL (13.5-17.5); IMMATURE GRAN ABSOLUTE AUTO 0.05 K/mm3 (0.00-0.10); IMMATURE GRAN PERCENT AUTO 0 % (0-1); LYMPHOCYTES ABSOLUTE AUTO 1.18 K/mm3 (0.84-5.20); LYMPHOCYTES PERCENT AUTO 9 % (21-46); MONOCYTES ABSOLUTE AUTO 1.23 K/mm3 (0.16-1.47); MONOCYTES PERCENT AUTO 10 % (4-13); Mean Corpuscular HGB 27.7 pg (26.0-34.0); Mean Corpuscular HGB Conc 31.6 g/dL (31.5-36.5); Mean Corpuscular Volume 87 fL (80-100); Mean Platelet Volume 8.9 fL (9.1-12.4); NEUTROPHILS ABSOLUTE AUTO 10.15 K/mm3 (1.96-9.15); NEUTROPHILS PERCENT AUTO 79 % (41-73); Platelet Count 314 K/mm3 (150-400); RDW Coefficient Variation 13.7 % (11.7-14.2); RDW Standard Deviation 43.7 fL (35.1-46.3); Red Blood Cell Count 5.17 M/mm3 (4.30-5.90); White Blood Cell Count 12.94 K/mm3 (4.00-11.30)
[2020-06-09 04:54] LABS: Anion Gap 8 mmol/L (6-16); Blood Urea Nitrogen 21 mg/dL (8-24); Bun/Creatinine Ratio 28.5 (12.0-20.0); CO2, Blood 25 mmol/L (21-32); Calcium, Blood 8.8 mg/dL (8.5-10.1); Chloride, Blood 106 mmol/L (98-108); Creatinine, Blood 0.74 mg/dL (0.60-1.20); Glomerular Filtration Rate >60 (60-); Glucose, Blood 133 mg/dL (70-99); Magnesium, Blood 2.2 mg/dL (1.6-2.4); Phosphorus, Blood 3.9 mg/dL (2.5-4.9); Potassium, Blood 4.7 mmol/L (3.5-5.5); Sodium, Blood 139 mmol/L (136-145)
--- NOTE | 2020-06-09 07:24 | NUR ---
END OF SHIFT SUMMARY PT CONT TO BE INTUBATED WITH VENT SETTINGS AC 16, TV 500, PEEP 10, FIO2 40%. PT HAS SHOWN NO PURPOSEFUL MOVEMENT. PRN ATIVAN GIVEN TWICE FOR TREMOUROUS MOVEMENTS WHILE COUGHING AND INCREASED RR; ATIVAN HELPFUL. MAX TEMP 101.7; PRN TYLENOL GIVEN. HR 100-130. SBP 130-160. MOSS IN PLACE AND DRAINING TO GRAVITY. RECTAL TUBE REPLACED THIS SHIFT. REPORT GIVEN TO MARELY DYKES.
--- NOTE | 2020-06-09 10:52 | NUR ---
Assumed car of patient at 0700. Bedside report recieved from Jyoti DYKES. 1000-RT and branch specialist ET tube 4cm. Patient did have gag reflex and raised arms up but did not reach for anything.
--- NOTE | 2020-06-09 17:41 | NUR ---
VSS entire shift, "seizure" like activity continues with 4mg ativan only relief (Q2). Febrile entire shift despite tylenol and ice packs. Lowest temp acheived was 100.2. Family came in again today and informed them that we can only have one family member here a day d/t the pandemic risk. Mother stated that she understands. Girlfriend stayed for visiting hours today. ET tube advanced 4cm this am with severe gag reflex and arm posturing. Did not have purposful movement, but did react to advance of tube. Urine output continues to be stable, rectal tube in place with no leaking.
--- NOTE | 2020-06-09 20:17 | NUR ---
ASSUMED CARE AT 1900 PT LAYING IN BED INTUBATED WITH VENT SETTINGS AC 16, TV 500, PEEP 8, FIO2 35%. PT HAVING MODERATE AMOUNT OF THICK YELLOW/WHITE SECREATIONS. PT CONT TO HAVE NO PURPOSFUL MOVEMENT BUT DOES HAVE COUGH AND GAG REFLEX. EPISODES OF MILD TREMUROUS MOVMENT NOTED, PRN ATIVAN AND FENTANYL AVAILABLE. HR 110-120. SBP 140-150. TEMP 100.7; ICE PACKS IN PLACE AND PRN TYLENOL AVAILABLE. PIVOT INFUSING VIA OG TUBE AT 45ML/HR WITH 30ML WATER FLUSHES Q4HR. RECTAL TUBE AND MOSS IN PLACE AND DRAINIG TO GRAVITY. SEE SHIFT ASSESSMENT FOR FULL ASSESSMENT.
--- NOTE | 2020-06-10 03:24 | NUR ---
UPDATE PT FOUND TO HAVE LIFTED HIS RIGHT ARM IN THE AIR WITHOUT PROMPT OR STIMULATION. RN THEN ATTEMPTED VERBAL STIMULATION AND PT DID NOT RESPOND. ORAL SUCTIONING WAS THEN REQURIED AND PT RIGHT ARM REACHED TOWARD HIS MOUTH. SOFT BILAT RESTRAINTS THEN APPLIED.
--- NOTE | 2020-06-10 05:52 | NUR ---
UPDATE PT PASSED SBT. SHORTLY AFTERWARDS, PT LUE WAS RIDGED, VERY TREMOURUS AND SHOWED DECEREBRATE POSTURING. RUE SHOWED NO REACTION OR PURPOSEFUL MOVEMENT. PRN ATIVAN AND FENTANYL GIVEN AND HELPFUL, LUE MOVEMENT DISAPPEARED. RESTRAINTS REMOVED AND D/C.
--- NOTE | 2020-06-10 06:05 | NUR ---
END OF SHIFT SUMMARY PT CONT TO BE INTUBATED WITH VENT SETTINGS AC 16, TV 500, PEEP 8, FIO2 25%. LARGE AMOUNTS OF THICK WHITE/YELLOW SECREATIONS SUCTIONED FROM ETT. PT PASSED SBT THIS AM. SEE PREVIOUS NURSES NOTES ABOUT ARM MOVEMENTS THIS SHIFT. NO PURPOSEFUL MOVEMENT RIGHT NOW. MAX TEMP 102.2; PRN TYLENOL GIVEN AND ICE PACKS IN PLACE. HR 110-130. SBP 140-160. PIVIOT INFUSING VIA OG AT 45ML/HR (GOAL) WITH 30ML WATER FLUSHES Q4HR. MINIMAL RESIDUALS. RECTAL TUBE AND MOSS IN PLACE AND DRAINING TO GRAVITY. WILL REPORT TO AM RN WHEN AVAILABLE.
--- NOTE | 2020-06-10 08:41 | NUR ---
Assumed care. Patient actively having "seizure" activity. Night RN in the process of giving ativan and fentanyl with moderate success in stopping seizure activity. Oral care done with active gag reflex reaction. No response to noxious stimuli.
--- NOTE | 2020-06-10 08:57 | NUR ---
Foot drop prevention boots placed on patient.
--- NOTE | 2020-06-10 18:23 | NUR ---
SHIFT SUMMARY: SEIZURE LIKE ACTIVITY CONTINUED THROUGHOUT THE DAY. ATIVAN GIVEN WITH BEST RESULTS. STARTED PATIENT ON PROPOFOL 20MCG/KG/HR WITH SOME RESULTS, BUT PATIENT CONTINUES TO HAVE SEIZURE LIKE ACTIVITY. PER DR. HOLGUIN, INCREASE PROPOFOL TO 40MCG/KG/HR. DR HOLGUIN WANTS PROPOFOL STOPPED AT 7AM FOR SEDATION VACATION, UNTIL HE COMES IN AT 830AM. PATIENT STILL EXIBITS NON PURPOSEFUL MOVEMENT WITH STRONG GAG REFLEX AND COUGH. SOME DECORTICATE POSTURING OF LOWER EXTREMITIES AND SHOULDER SHRUGGING AT THE END OF SHIFT. VSS BUT PATIENT FEBRILE THE ENTIRE SHIFT, WITH MINIMAL RESULTS FROM ICE BAGS.
--- NOTE | 2020-06-10 20:30 | NUR ---
ASSUMING PT CARE: PT LAYING SUPINE. INTUBATED, SEDATED. VENT: 16/500, 8/30%. PROPOFOL GTT @ 20mcg/kg/min. PT IS UNRESTRAINED, TOLERATING ETT WELL. UNRESPONSIVE TO NOXIOUS STIMULI, HOWEVER PT HAS INTERMITTENT EPISODES OF A VERY STRONG GAG, AT TIMES JERKING HIS HEAD BACK & PRODUCING COPIOUS AMTs OF THICK YELLOW SPUTUM. SKIN PINK/FLUSHED, HOT, DRY. CORE TEMP 100.8. FANS BLOWING ON PT D/T TEMP. TF @ GOAL OF 45mls/hr. SEE INITIAL SHIFT ASSESSMENT DOCUMENTATION.
[2020-06-11 05:02] LABS: BASOPHILS PERCENT AUTO 1 % (0-2); EOSINOPHILS ABSOLUTE AUTO 0.58 K/mm3 (0.00-0.68); EOSINOPHILS PERCENT AUTO 5 % (0-6); Hematocrit 40.7 % (37.0-53.0); Hemoglobin 12.8 g/dL (13.5-17.5); IMMATURE GRAN ABSOLUTE AUTO 0.04 K/mm3 (0.00-0.10); IMMATURE GRAN PERCENT AUTO 0 % (0-1); LYMPHOCYTES ABSOLUTE AUTO 0.95 K/mm3 (0.84-5.20); LYMPHOCYTES PERCENT AUTO 7 % (21-46); MONOCYTES ABSOLUTE AUTO 1.22 K/mm3 (0.16-1.47); MONOCYTES PERCENT AUTO 9 % (4-13); Mean Corpuscular HGB 28.2 pg (26.0-34.0); Mean Corpuscular HGB Conc 31.4 g/dL (31.5-36.5); Mean Corpuscular Volume 90 fL (80-100); Mean Platelet Volume 9.2 fL (9.1-12.4); NEUTROPHILS ABSOLUTE AUTO 10.09 K/mm3 (1.96-9.15); NEUTROPHILS PERCENT AUTO 78 % (41-73); Platelet Count 269 K/mm3 (150-400); RDW Coefficient Variation 13.9 % (11.7-14.2); RDW Standard Deviation 45.8 fL (35.1-46.3); Red Blood Cell Count 4.54 M/mm3 (4.30-5.90); White Blood Cell Count 12.98 K/mm3 (4.00-11.30)
[2020-06-11 05:27] LABS: Anion Gap 6 mmol/L (6-16); Blood Urea Nitrogen 25 mg/dL (8-24); Bun/Creatinine Ratio 34.3 (12.0-20.0); CO2, Blood 27 mmol/L (21-32); Calcium, Blood 8.8 mg/dL (8.5-10.1); Chloride, Blood 110 mmol/L (98-108); Creatinine, Blood 0.73 mg/dL (0.60-1.20); Glomerular Filtration Rate >60 (60-); Glucose, Blood 118 mg/dL (70-99); Potassium, Blood 4.4 mmol/L (3.5-5.5); Sodium, Blood 143 mmol/L (136-145)
--- NOTE | 2020-06-11 06:26 | NUR ---
SHIFT SUMMARY: PT CONTINUES TO BE INTUBATED, SEDATED. VENT: AC 16/500, 8/40%. PROPOFOL 50mcg/kg/min. NO CHANGES IN NEURO STATUS PREVIOUSLY DOCUMENTED. PT CONTINUES TO HAVE VERY PRONOUNCED GAG REFLEX, ARCHING HIS BACK & COUGHING AGAINST ETT. PUPILS SLUGGISH BUT RESPONSIVE. INTERMITTENT EPISODES OF SEIZURE-LIKE ACTIVITY W/ PT BECOMING VERY TREMULOUS. AT TIMES R ARM W/ RHYTHMIC TWITCHING, JERKING. SYMPTOMS RESOLVED W/ ATIVAN IVP. TMAX 100.9. TF @ GOAL OF 50ml/hr, 0/0/0 RESIDUALS. RECTAL TUBE & MOSS DRAINING TO GRAVITY. 800ml HERMELINDO URINE OUTPUT. WILL CONTINUE TO MONITOR UNTIL REPORT OFF TO ONCOMING RN.
--- NOTE | 2020-06-11 09:24 | NUR ---
BEDSIDE REPORT TAKEN AT 0715. PROPOFOL WAS AT 20MCG FOR SEIZURE CONTROL. PROPOFOL TURNED OFF AT [address] HOLUGIN. PT ON MECH VENT, SATS >95% ON 40% FIO2. PEEP 8. PT HAS STRONG/EXAGGERATED COUGH/GAG. PT DOES NOT OPEN EYES SPONT. EYELIDS DO FLICKER/TWITCH CONTINUOUSLY. PT TEMP SPIKED TO 101.3, AFTER THIS TWITCHING/SHIVERING SEEN. TYLENOL GIVEN, FAN ON PT. PT HAS + DOLLS EYES, + SWALLOW, + CORNEAL REFLEX/PLANTAR REFLEX. PT DOES NOT RESPOND TO PAIN. NO MOVEMENT OF EXTREMITIES OBSERVED.
--- NOTE | 2020-06-11 10:30 | NUR ---
DR HOLGUIN IN TO SEE PT. PROPOFOL RESTARTED PER DR HOLGUIN. EEG AND ECHO TO BE ORDERED. TEMP REMAINS 101.1 DESPITE TYLENOL AND FAN. WILL PLACE ICE PACKS
--- NOTE | 2020-06-11 10:59 | NUR ---
ICE PACKS PLACED TO UNDERARMS, NECK AND GROIN. BUTTOCKS EXCORIATED FROM LOOSE STOOL LEAKING AROUND RECTAL TUBE. AREA CLEANED WELL, BARRIER CREAM APPLIED.
--- NOTE | 2020-06-11 11:03 | NUR ---
PT SATS 85% DESPITE INCREASE IN PEEP. PT PLACED IN SUPINE FLAT POSITION; THIS IS THE ONLY POSITION THAT PT IS OXYGENATING WELL IN AT THIS TIME. SATS NOW 92%. DR HOLGUIN NOTIFIED.
--- NOTE | 2020-06-11 11:47 | NUR ---
echocardiogram completed
--- NOTE | 2020-06-11 12:23 | NUR ---
ASSISTED RT WITH ADVANCING ETT 4CM; 28 AT TEETH. NO OTHER CHANGES TO PREVIOS ASSESMENT. PT REMAINS ON PROPOFOL AT 20MCG. TEMP DOWN TO 100.1
--- NOTE | 2020-06-11 16:44 | NUR ---
ATIVAN 2MG GIVEN FOR POSSIBLE DECEREBRATE POSTURING. PT'S TEMP BEGAN TO RISE, TYLENOL GIVEN, FRESH ICE PACKS PLACED. AFTER ICE PACKS PLACED, PT STARTED TO SHIVER SIGNIFICANTLY. SHORTLY AFTER THIS, PT'S SHOULDERS SHRUGGED, ARMS BECAME RIGID/STRAIGHT WITH INNER WRIST TURNED OUTWARD. LEGS STRAIGHT AND RIGID WITH FEET FLEXED. DR HOLGUIN NOTIFIED.
--- NOTE | 2020-06-11 19:30 | NUR ---
ASSUMING PT CARE: PT INTUBATED & SEDATED. VENT: AC 16/500, 5/30%. PROPOFOL GTT @ 40mcg/kg/min. PT APPEARS TREMULOUS, HOWEVER NO SPONT MOVEMENT OF EXTREMITIES. LIMBS STIFF W/ ROM. PT RECOILS, ARCHES BACK & HAS A VERY PRONOUCED GAG REFLEX W/ ORAL CARE. COPIOUS AMT OF ORAL SECRETIONS, TENACIOUS & CLEAR. ETT SUCTION +THICK, YELLOW. PT CONTINUES TO BE FEBFRILE @ 100.0 PREVIOUS RN REPORT. ICE PACKS IN PACE & FAN BLOWING ON PT. WILL CONTINUE TO MONITOR & REPORT APPROPRIATE.
--- NOTE | 2020-06-12 01:24 | NUR ---
UPDATE: PT NOTED TO BE SHIVERING, UNRESOLVED AFTER PLACING TOP SHEET. THIS EPISODE QUICKLY WORSENED W/ VERY PRONOUCED COUGHING/GAGGING; PT ARCHING HIS BACK & LURCHING FORWARD, BECOMING RED IN THE FACE & PRODUCING COPIOUS AMTs OF WHITE THIN SECRETIONS. PT MEDICATED W/ IVP ATIVAN & FENTANYL. AFTER SEVERAL MINUTES, THE EPISODE BEGAN TO RESOLVE. VS STABLE THROUGHOUT EPISODE.
[2020-06-12 03:25] LABS: BASOPHILS ABSOLUTE AUTO 0.07 K/mm3 (0.00-0.23); BASOPHILS PERCENT AUTO 1 % (0-2); EOSINOPHILS ABSOLUTE AUTO 0.55 K/mm3 (0.00-0.68); EOSINOPHILS PERCENT AUTO 6 % (0-6); Hematocrit 37.8 % (37.0-53.0); Hemoglobin 11.7 g/dL (13.5-17.5); IMMATURE GRAN ABSOLUTE AUTO 0.04 K/mm3 (0.00-0.10); IMMATURE GRAN PERCENT AUTO 0 % (0-1); LYMPHOCYTES ABSOLUTE AUTO 1.23 K/mm3 (0.84-5.20); LYMPHOCYTES PERCENT AUTO 12 % (21-46); MONOCYTES PERCENT AUTO 9 % (4-13); Mean Corpuscular HGB 27.7 pg (26.0-34.0); Mean Corpuscular Volume 89 fL (80-100); Mean Platelet Volume 9.4 fL (9.1-12.4); NEUTROPHILS ABSOLUTE AUTO 7.19 K/mm3 (1.96-9.15); NEUTROPHILS PERCENT AUTO 72 % (41-73); Platelet Count 283 K/mm3 (150-400); RDW Coefficient Variation 13.9 % (11.7-14.2); RDW Standard Deviation 44.9 fL (35.1-46.3); Red Blood Cell Count 4.23 M/mm3 (4.30-5.90); White Blood Cell Count 9.98 K/mm3 (4.00-11.30)
[2020-06-12 03:41] LABS: Anion Gap 5 mmol/L (6-16); Blood Urea Nitrogen 23 mg/dL (8-24); CO2, Blood 27 mmol/L (21-32); Calcium, Blood 8.5 mg/dL (8.5-10.1); Chloride, Blood 112 mmol/L (98-108); Creatinine, Blood 0.64 mg/dL (0.60-1.20); Glomerular Filtration Rate >60 (60-); Glucose, Blood 106 mg/dL (70-99); Magnesium, Blood 2.1 mg/dL (1.6-2.4); Potassium, Blood 4.2 mmol/L (3.5-5.5); Sodium, Blood 144 mmol/L (136-145)
--- NOTE | 2020-06-12 06:08 | NUR ---
SHIFT SUMMARY: PT CONTINUES TO BE INTUBATED, SEDATED. VENT: 16/500, 8/40%. PROPOFOL GTT @ 50mcg/kg/min. FREQUENT EPISODES OF SEIZURE-LIKE ACTIVITY. SOME EPISODES MORE SEVERE THAN OTHERS. AT TIMES PT IS SHAKING, LAYING SUPINE IN BED. PT ALSO BEGAN TO VIOLENTLY POSTURE, ARCHING HIS BACK & LIFTING HIS TORSO FULLY OFF OF THE BED. FREQUENT DECEREBRET POSTURING NOTED IN LUE. ATIVAN IVPs & PROPOFOL INC MITIGATED THESE EPISODES BUT PT CONTINUES TO POSTURE. TMAX 101.7. ICE PACKS & FAN STILL IN PLACE. NO NOTABLE STOOL OUTUT IN RECTAL TUBE. GOOD URINARY OUTPUT. WILL CONTINUE TO MONITOR UNTIL REPORT OFF TO ONCOMING RN.
--- NOTE | 2020-06-12 08:11 | NUR ---
PT INTUBATED AND SEDATED WITH PROPOFOL. EYE'S CONSTANTLY FLUTTER BUT DO NOT OPEN SPONTANEOUSLY. WITHDRAWS FROM NAILBED PRESSURE. R ARM AND SHOULDER SHRUG FREQUENTLY AND IS RIGID. LEGS ARE RIGID. STRONG GAG AND COUGH. SHIVERING T/O. MANAGING TEMP WITH TYLENOL AND ICE PACKS. SEE ASSESSMENT.
--- NOTE | 2020-06-12 10:00 | NUR ---
PROPOFOL ON STANDBY FOR ASSESSMENT BY DR. JOYNER. WAS ONLY ON STANDBY FOR ABOUT 10MINS BEFORE RESP RATE INCREASED TO 37 AND SHIVERING LIKE ACTIVITY AMPLIFIED. PUPILS REACTIVE BUT NO MOVEMENT OF EYE'S. WITHDRAWS TO DEEP NAILBED PRESSURE. PLACED BACK ON PROPOFOL FOR SEDATION. PEEP DECREASED TO 5 WELL.
--- NOTE | 2020-06-12 18:22 | NUR ---
SUMMARY PT INTUBATED. SEDATION WAS TURNED OFF PER DR. BARRIGA. DR. JOYNER SAID TO USE FENTANYL IF PT BECOMES AGITATED. THERE IS TO BE ANOTHER EEG IN AM AND DR. BARRIGA WANTS HIS MOM WHO IS NEXT OF KIN HERE TO TALK TO HER TOMORROW AT 1000. CT DONE TODAY. TRYING TO KEEP TEMP BELOW 100.0, PER DR. JOYNER, WITH TYLENOL AND ICE PACKS. NO OTHER CHANGES TODAY.
[2020-06-13 03:56] LABS: BASOPHILS PERCENT AUTO 1 % (0-2); EOSINOPHILS ABSOLUTE AUTO 0.26 K/mm3 (0.00-0.68); EOSINOPHILS PERCENT AUTO 2 % (0-6); Hematocrit 41.1 % (37.0-53.0); Hemoglobin 12.7 g/dL (13.5-17.5); IMMATURE GRAN ABSOLUTE AUTO 0.06 K/mm3 (0.00-0.10); IMMATURE GRAN PERCENT AUTO 1 % (0-1); LYMPHOCYTES ABSOLUTE AUTO 1.25 K/mm3 (0.84-5.20); LYMPHOCYTES PERCENT AUTO 10 % (21-46); MONOCYTES PERCENT AUTO 8 % (4-13); Mean Corpuscular HGB 27.7 pg (26.0-34.0); Mean Corpuscular HGB Conc 30.9 g/dL (31.5-36.5); Mean Corpuscular Volume 90 fL (80-100); Mean Platelet Volume 9.3 fL (9.1-12.4); NEUTROPHILS ABSOLUTE AUTO 10.03 K/mm3 (1.96-9.15); NEUTROPHILS PERCENT AUTO 79 % (41-73); Platelet Count 327 K/mm3 (150-400); RDW Coefficient Variation 13.6 % (11.7-14.2); RDW Standard Deviation 44.6 fL (35.1-46.3); Red Blood Cell Count 4.58 M/mm3 (4.30-5.90)
[2020-06-13 04:19] LABS: Anion Gap 5 mmol/L (6-16); Blood Urea Nitrogen 21 mg/dL (8-24); Bun/Creatinine Ratio 34.9 (12.0-20.0); CO2, Blood 27 mmol/L (21-32); Calcium, Blood 8.9 mg/dL (8.5-10.1); Chloride, Blood 112 mmol/L (98-108); Glomerular Filtration Rate >60 (60-); Glucose, Blood 113 mg/dL (70-99); Magnesium, Blood 2.1 mg/dL (1.6-2.4); Phosphorus, Blood 4.2 mg/dL (2.5-4.9); Potassium, Blood 4.1 mmol/L (3.5-5.5); Sodium, Blood 144 mmol/L (136-145)
--- NOTE | 2020-06-13 04:48 | NUR ---
SHIFT SUMMARY NO NEURO CHANGES TO NOTE TONIGHT. PT. HAD A SEIZURE-LIKE EPISODE AT 22:15 LAST NIGHT, GAVE FENTANYL 50 MCG, HOWEVER DID NOTHING TO STOP SYMPTOMS, GAVE 4MG ATIVAN, STOPPED. NO FURTHER CHANGES TO NOTE. ASSESSMENT IS CHARTED. VSS. WILL CONTINUE TO MONITOR.
--- NOTE | 2020-06-13 09:20 | NUR ---
ASSUMED CARE OF PT, REPORT RCV'D FROM JANIA REYNOLDS. PT INTUBATED, VENT SETTINGS AC 16/500/5/30%. PT UNSEDATED AND UNRESPONSIVE TO PAINFUL STIMULI. PUPILS 5 MM AND IRREGULAR WITH RIGHT EYE DEVIATION TOWARD RIGHT AND UPWARDS. PT HAS INVOLUNTARY FULL BODY TREMORS THAT IMPROVE WITH ADMINISTRATION OF ATIVAN. CURRENT TEMP 101.3. SINUS TACH, ALL OTHER VSS. SEE FULL SHIFT ASSESSMENT.
--- NOTE | 2020-06-13 18:03 | NUR ---
SHIFT SUMMARY NO ACUTE CHANGES THIS SHIFT. PT REMAINS INTUBATED, VENT SETTINGS 16/500/5/30% WITH SATS>90%. PT REMAINS MINIMALLY RESPONSIVE TO PAINFUL STIMULI, NO PURPOSEFUL MOVEMENT NOTICED. PT OCCASIONALLY HAS RIGHT UPWARD EYE DEVIATION. PT DISPLAYED MINIMAL TREMORS FOLLOWING MORNING ATIVAN ADMINISTRATION, TREMORS. THIS EVENING PT IS SLIGHTLY MORE TREMULOUS. PT TREATED WITH TYLENOL TWICE, TMAX 101.3. PT REMAINS TACHYCARDIC WITH HT 100-120'S, BP WNL. [facility] CALLED ON SEVERAL OCCASIONS FOR UPDATES. WILL PASS ON TO NOC NURSE TO CALL WITH SBT RESULTS. DR. BARRIGA TO REASESS PT'S NEURO STATUS TOMORROW 06/14/2020 AROUND 1900. PT'S FAMILY AWARE AND PLAN TO ATTEND TO DISCUSS OPTIONS. WILL REPORT TO ONCOMING NURSE.
--- NOTE | 2020-06-13 18:56 | NUR ---
Spiritual care note: Made a couple visits with Jenaro's family today. I met with his mom and later with his gf. Both have hope that Jenaro will recover. They see the fact that he opened his eyes today as a sign of recovery. Prayer provided with both. They expressed appreciation for senior living sales counselor, comfort, and prayer. I will remain available.
--- NOTE | 2020-06-13 23:09 | NUR ---
06/13 @ 21:[address] BARRIGA FOR FURTHER GUIDANCE FOR SEDATION. PT. HAVING VIOLENT COUGHING FITS, BENDING IN HALF IN BED, HAS COUGHED ETT OUT ABOUT 1 CM, NO PURPOSEFUL NEUROLOGICAL RESPONSE AT THIS TIME. GAVE AVAILABLE FENTANYL, NOT HELPING AGITATION AT ALL. VERY TREMULOUS, HEART RATE 120s, NOT TOLERATING VENTILATOR, SPO2 DOWN TO 85%, INCREASED FIO2 > 100%. PER DR. BARRIGA OK WITH INCREASING FENTANYL DOSE, OR IF NEEDED A PROPOFOL DRIP, BUT NO BENZODIAZEPINES, DEFER TO CRITICAL CARE FOR MEDS. SPOKE WITH DR. LICEA, INCREASE FENTANYL TO 50-100 MCG Q1H PRN, IF THAT DOES NOT WORK MAY START PROPOFOL DRIP. AGITATION GREATLY IMPROVED AFTER RECEIVING X2 50 MCG DOSES OF FENTANYL, MAINTAINING SPO2 ~ 92% ON 60% FIO2, ETT ADVANCED PER DR. LICEA, WILL CHECK CHEST X-RAY IN AM, ORDER ALREADY IN PLACE. WILL CONTINUE TO MONITOR.
[2020-06-14 03:30] LABS: BASOPHILS PERCENT AUTO 1 % (0-2); EOSINOPHILS ABSOLUTE AUTO 0.09 K/mm3 (0.00-0.68); EOSINOPHILS PERCENT AUTO 1 % (0-6); Hemoglobin 13.1 g/dL (13.5-17.5); IMMATURE GRAN ABSOLUTE AUTO 0.06 K/mm3 (0.00-0.10); IMMATURE GRAN PERCENT AUTO 0 % (0-1); LYMPHOCYTES ABSOLUTE AUTO 1.09 K/mm3 (0.84-5.20); LYMPHOCYTES PERCENT AUTO 7 % (21-46); MONOCYTES ABSOLUTE AUTO 1.03 K/mm3 (0.16-1.47); MONOCYTES PERCENT AUTO 6 % (4-13); Mean Corpuscular HGB 27.8 pg (26.0-34.0); Mean Corpuscular HGB Conc 31.2 g/dL (31.5-36.5); Mean Corpuscular Volume 89 fL (80-100); Mean Platelet Volume 9.1 fL (9.1-12.4); NEUTROPHILS ABSOLUTE AUTO 14.44 K/mm3 (1.96-9.15); NEUTROPHILS PERCENT AUTO 86 % (41-73); Platelet Count 375 K/mm3 (150-400); RDW Coefficient Variation 13.8 % (11.7-14.2); RDW Standard Deviation 44.8 fL (35.1-46.3); Red Blood Cell Count 4.71 M/mm3 (4.30-5.90); White Blood Cell Count 16.81 K/mm3 (4.00-11.30)
[2020-06-14 03:48] LABS: Anion Gap 9 mmol/L (6-16); Blood Urea Nitrogen 23 mg/dL (8-24); Bun/Creatinine Ratio 34.8 (12.0-20.0); CO2, Blood 24 mmol/L (21-32); Chloride, Blood 111 mmol/L (98-108); Creatinine, Blood 0.66 mg/dL (0.60-1.20); Glomerular Filtration Rate >60 (60-); Glucose, Blood 121 mg/dL (70-99); Potassium, Blood 4.5 mmol/L (3.5-5.5); Sodium, Blood 144 mmol/L (136-145)
--- NOTE | 2020-06-14 05:57 | NUR ---
SHIFT SUMMARY PATIENT HAS NOT DONE WELL TONIGHT. AFTER HAVING INCREASED FENTANYL DOSES PT. IS RESTING MORE COMFORTABLY, TOLERATING VENTILATOR BETTER, HOWEVER HAS HAD CONTINUAL SHAKING OF JUST THE RIGHT ARM. VERY STIFF, LEFT ARM IS FLACCID, NO WITHDRAWL IN ANY EXTREMITY TO NOXIOUS STIMULI. PUPILS HAVE STEADILY BECOME SMALLER THE NIGHT HAS PROGRESSED, STILL ROUND, EQUAL, REACTIVE TO LIGHT. FEVER HAS BEEN GROSSLY UNAFFECTED BY TYLENOL, FINALLY STARTED DECREASING AFTER GIVING COLD-WATER BATH. ASSESSMENT IS CHARTED. VSS. WILL CONTINUE TO MONITOR.
--- NOTE | 2020-06-14 07:58 | NUR ---
Receivced report from Dhaval DYKES. Patient is intubated without sedation. He has tremors bilateral UE's and abdominal area. UE's a little rigid. He opens eyes minimal to nocious stimuli. He has tremors to bilateral UE's and abdominal area and UE's very stiff with movements. He is intubated with 7.0 ET and is 26 cm at lips with vent settings of AC 16, TV 500, FiO2 55%, PEEP 5.0 and sats 97%. He has two 18ga IV , RFA, RH both dressings intact and sites WNL's. He has 16Fr temp rdz draining to gravity and has temp of 100.9, Placed ice packs in arm pits and groins and behind neck with two fans. Repositioned and did am care with oral and recatl care with cath care. Suctioned multiple times large amount of creamy white ET secretions. He has rectal tube with dark brown liquid stool. He has OG in place with VHP at 45 ml/hr at goal rate with 30 ml water flushes Q4.
--- NOTE | 2020-06-14 10:00 | NUR ---
Dr John was just in room doing her assessment. EEG is in room hooking him up for test. Dr Pandya called and received update and with constant tremors he wanted EEG. Still hypertensive and ST 110-120's sats on same vent settings 97%. Keppra dose increased 2 GM's. Tremors continue and copius amounts of ET secretions continue as well.
--- NOTE | 2020-06-14 12:45 | NUR ---
Patients EEG done. Dr Ashley called toward end and wanted Dilantin 20mg/kg administered over 15 minutes and pharmacy called stated too much and Beckie called Dr Pandya and cleared dose. Dr Pandya wanted to run twice as fast as pharmacy stated safe, even pump would not run any faster and let Dr Pandya know and he was OK. No chnages in VS or vent settings or patients neuro's.
--- NOTE | 2020-06-14 14:30 | NUR ---
No significant changes with patient. He continues with tremors UE's bilaterally and abdominal tremors as well. Remains in ST 110-120 and systolic 130-150's. Sats on same vent settings 99%. Richardson remains patent and dark soham urine about 100ml/hr. Mother at bedside.
--- NOTE | 2020-06-14 18:00 | NUR ---
Dr Pandya called and will continue to see mother at [phone] and give update on EEG from today. Vent settings AC 16, TV 500, FiO2 55%, PEEP 5.0 and dominique >95%. Pupils 2 and are very sluggish, tremors mild until care and when touching patient triggers tremors. Still alittle ridge on left side. Elevated UE;s with pillows. Mother at bedside. Urine leaking from penis and flushed catheter to assure not plugged , but remains patent, 1200 dark soham colored urine. Temp down to 99.9. VSS remains stable, see EMR.
[2020-06-15 06:17] LABS: BASOPHILS ABSOLUTE AUTO 0.08 K/mm3 (0.00-0.23); BASOPHILS PERCENT AUTO 1 % (0-2); EOSINOPHILS ABSOLUTE AUTO 0.13 K/mm3 (0.00-0.68); EOSINOPHILS PERCENT AUTO 1 % (0-6); Hematocrit 43.2 % (37.0-53.0); Hemoglobin 13.2 g/dL (13.5-17.5); IMMATURE GRAN ABSOLUTE AUTO 0.11 K/mm3 (0.00-0.10); IMMATURE GRAN PERCENT AUTO 1 % (0-1); LYMPHOCYTES ABSOLUTE AUTO 1.13 K/mm3 (0.84-5.20); LYMPHOCYTES PERCENT AUTO 6 % (21-46); MONOCYTES ABSOLUTE AUTO 1.11 K/mm3 (0.16-1.47); MONOCYTES PERCENT AUTO 6 % (4-13); Mean Corpuscular HGB 27.2 pg (26.0-34.0); Mean Corpuscular HGB Conc 30.6 g/dL (31.5-36.5); Mean Corpuscular Volume 89 fL (80-100); Mean Platelet Volume 9.3 fL (9.1-12.4); NEUTROPHILS ABSOLUTE AUTO 15.09 K/mm3 (1.96-9.15); NEUTROPHILS PERCENT AUTO 86 % (41-73); Platelet Count 434 K/mm3 (150-400); Red Blood Cell Count 4.85 M/mm3 (4.30-5.90); White Blood Cell Count 17.65 K/mm3 (4.00-11.30)
--- NOTE | 2020-06-15 06:20 | NUR ---
SHIFT SUMMARY NO ACUTE CHANGES IN PATIENT CONDITION. PER DR. BARRIGA OK TO RECEIVE ATIVAN AGAIN, GAVE 2 DOSES FOR AGITATION, MUCH IMPROVED. NEURO CONDITION OUTLINED IN NEURO ASSESSMENT, NO CHANGES THRU NIGHT. RT PLACED PATIENT ON SPONTANEOUS VENT SETTING @ 05:10, STILL PULLING TIDAL VOLUMES ~ 450, RR ~ 12 BPM. ASSESSMENT IS CHARTED. VSS. WILL CONTINUE TO MONITOR.
[2020-06-15 06:32] LABS: Anion Gap 8 mmol/L (6-16); Blood Urea Nitrogen 23 mg/dL (8-24); CO2, Blood 26 mmol/L (21-32); Calcium, Blood 9.1 mg/dL (8.5-10.1); Chloride, Blood 111 mmol/L (98-108); Creatinine, Blood 0.62 mg/dL (0.60-1.20); Glomerular Filtration Rate >60 (60-); Glucose, Blood 129 mg/dL (70-99); Potassium, Blood 4.3 mmol/L (3.5-5.5); Sodium, Blood 145 mmol/L (136-145)
[2020-06-15 06:35] LABS: Dilantin (Phenytoin), Total 10.8 ug/mL (10.0-20.0)
--- NOTE | 2020-06-15 07:29 | NUR ---
Received report from Dhaval DYKES. Patient is intubated and no sedation. His eyes are fluttering and making chewing motions with care. No purposeful movements from extremities and has some mild tremors to UE's and abdomen. He has 7.0 EYT and is 26 cm at lips with vent settings of Spon. mode PS 5 FiO2 45% and PEEP 5.0 and sats 96%. He is ST 112 and 123 systolic. He has 20ga IV LFA dressing intact and site WNL's and is infusing NS TKO. He also has 20 IV to RFA and dressing intact and flushged and SL'd. OG in place and is infusing VHP at 45 ML/hr at goal rate and 30 ml water flushes Q4, with residuals <50 ml. He has 16Fr Temp rdz draining to gravity dark soham colored urine in adequate amounts and has temp of 100.6. He also has rectal tube with minimal dark brown liquid stool.
--- NOTE | 2020-06-15 09:30 | NUR ---
Have been able to reduce FiO2 to 35% and sats >94%, Repositioned patient. He has been slightly hypertensive 130-150's with HR ST 115. Minimal neuro statuc, no purposeful movement and chewing on bite block has stopped. He has had some penal discharge, clear. Hospitalist by no new orders.
--- NOTE | 2020-06-15 11:30 | NUR ---
FiO2 decreased to 25%, no other significant changes with patient or neuros. Temp remains 100.6. Will medicate with Ativan for some increased tremors to UE's and abdomen. Oral care and repositioning done.
--- NOTE | 2020-06-15 13:30 | NUR ---
No significant changes with patient. He remains on spon. PS 5 FiO2 25% PEEP 5 and sats 94%. No neuro changes form original note. He remains on NS TKO and Abx. No purposeful movement and some eye fluttering during care. Richardson has some bloody out than cleared back to dark soham colored urine minimal rectal tube output.
--- NOTE | 2020-06-15 15:30 | NUR ---
Patients girlfriend at bedside. His sats dropped low to mid 80's and increased FiO2 back up to 35% and sats >92%. No other vent setting changes and or neuro changes.
--- NOTE | 2020-06-15 18:58 | NUR ---
patient continues on Spon. mode PS 5, FiO2 35%, PEEP 5.9 and sats 93%. He continues with penial discharge and blood has cleared in rdz, minimal rectal tube output.NS TKO to RFA 20ga IV. TF continues at goal rate 45 and 30 ml water flushes Q4. No neuro changes from am note.
--- NOTE | 2020-06-15 19:00 | NUR ---
ASSUMED CARE ASSUMED CARE OF PATIENT. REMAINS INTUBATED- SPONTANEOUS PS 5, PEEP 5, FIO2 35%, RR 25-28. MONITOR SHOWS ST, RATE 120s. BP STABLE. TEMP 101.5F VIA MOSS TEMP PROBE. UNRESPONSIVE TO NOXIOUS STIMULI. POSITIVE COUGH AND GAG REFLEX. PUPILS 4MM, SLUGGISH- LEFT PUPIL IS SLIGHTLY MORE SLUGGISH THAN RIGHT. OG WITH VITAL HIGH PROTEIN AT GOAL RATE OF 45CC/HR. MOSS PATENT AND DRAINING TO GRAVITY- HERMELINDO URINE WITH SEDIMENT NOTED. SEE SHIFT ASSESSMENT FOR FULL ASSESSMENT.
[2020-06-16 03:37] LABS: BASOPHILS ABSOLUTE AUTO 0.09 K/mm3 (0.00-0.23); BASOPHILS PERCENT AUTO 1 % (0-2); EOSINOPHILS ABSOLUTE AUTO 0.15 K/mm3 (0.00-0.68); EOSINOPHILS PERCENT AUTO 1 % (0-6); Hematocrit 43.8 % (37.0-53.0); Hemoglobin 13.4 g/dL (13.5-17.5); IMMATURE GRAN ABSOLUTE AUTO 0.09 K/mm3 (0.00-0.10); IMMATURE GRAN PERCENT AUTO 1 % (0-1); LYMPHOCYTES ABSOLUTE AUTO 1.14 K/mm3 (0.84-5.20); LYMPHOCYTES PERCENT AUTO 7 % (21-46); MONOCYTES ABSOLUTE AUTO 1.01 K/mm3 (0.16-1.47); MONOCYTES PERCENT AUTO 7 % (4-13); Mean Corpuscular HGB 27.3 pg (26.0-34.0); Mean Corpuscular HGB Conc 30.6 g/dL (31.5-36.5); Mean Corpuscular Volume 89 fL (80-100); Mean Platelet Volume 9.5 fL (9.1-12.4); NEUTROPHILS ABSOLUTE AUTO 13.04 K/mm3 (1.96-9.15); NEUTROPHILS PERCENT AUTO 84 % (41-73); Platelet Count 452 K/mm3 (150-400); RDW Coefficient Variation 14.3 % (11.7-14.2); RDW Standard Deviation 46.2 fL (35.1-46.3); White Blood Cell Count 15.52 K/mm3 (4.00-11.30)
[2020-06-16 03:56] LABS: Anion Gap 7 mmol/L (6-16); Blood Urea Nitrogen 25 mg/dL (8-24); Bun/Creatinine Ratio 39.9 (12.0-20.0); CO2, Blood 26 mmol/L (21-32); Calcium, Blood 9.2 mg/dL (8.5-10.1); Chloride, Blood 113 mmol/L (98-108); Creatinine, Blood 0.63 mg/dL (0.60-1.20); Glomerular Filtration Rate >60 (60-); Glucose, Blood 134 mg/dL (70-99); Potassium, Blood 4.2 mmol/L (3.5-5.5); Sodium, Blood 146 mmol/L (136-145)
--- NOTE | 2020-06-16 06:08 | NUR ---
SHIFT SUMMARY NO ACUTE CHANGES DURING NOC. MINIMAL TREMORS NOTED AT TIMES. NO SEIZURE ACTIVITY. POSITIVE GAG AND COUGH REFLEX. EYES OPEN TO NOXIOUS STIMULI AT TIMES. NO OTHER SPONTANEOUS MOVEMENT NOTED. VSS. TUBE FEEDING CONTINUES AT GOAL RATE OF 45CC/HR. RESIDUALS 0-10cc. RECTAL TUBE IN PLACE WITH SMALL AMOUNT OF LIQUID BROWN STOOL. MOSS PATENT AND DRAINING DARK HERMELINDO URINE- SEDIMENT NOTED. WILL REPORT TO ONCOMING RN WHEN AVAILABLE.
--- NOTE | 2020-06-16 07:10 | NUR ---
[place] of Care: Care assumed at 0700hr. Patient intubated, but remains off sedation medications for several days. Appears calm at rest, but not following any commands. Positive gag and cough reflex, otherwise no purposeful movements. Occasional mild tremor noted to extremities. Pupils equal and reactive, with mild nystagmus. VSS, spO2- 92-95% Vent to PS of 5, PEEP-5, 35% FiO2. Richardson cath patent and intact, draining dark yellow clear urine. rectal tube in place, small amount of loose brown stool draining. Peripheral IV's x2 patent and intact. TF at goal, water flush increased from 30ml q4hr to 60ml q4hr per Dr. John. Will continue to monitor.
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
--- NOTE | 2020-06-16 18:54 | NUR ---
Shift Summary: No significant changes throughout shift. No changes to vent settings, remains of PS of 5, PEEP of 5, FiO2 of 35%. VSS remains stable. Temp increased to 101.7 this afternoon. Per tube tylenol given and ice packs placed to bilateral axilla. Temp now decreased to 99.9. X2 prn fentanyl given per facial grimacing, with good effect noted. No changes to neuro status throughout shift, continues to have no purposeful movements and not following commands. Appears calm and comfortable at this time. Will continue to monitor until report to NOC shift RN.
--- NOTE | 2020-06-16 21:25 | NUR ---
SHIFT ASSESSMENT ASSUMED CARE OF PT @ 1900. REPORT RECV'D FROM JUAN C DYKES. PT INTUBATED, REMAINS OFF SEDATION. TOLERATING VENTILATOR, NO PURPOSEFUL MOVEMENT. PULLS BACK IN RESPONSE TO NOXIOUS STIMULI. VENT SETTINGS PS 5, PEEP-5, FIO2 35% c O2 SATS >95%. POSITIVE GAG AND COUGH REFLEX. TF @ GOAL RATE. TEMP MOSS PATENT WITH SMALL LEAK, NEW 18FR TEMP MOSS INSERTED. URINE LIGHT RED IN COLOR. RECTAL TUBE IN PLACE, SMALL AMOUNTS OF LOOSE BROWN STOOL. VSS. WILL CONTINUE TO MONITOR.
[2020-06-17 03:47] LABS: BASOPHILS ABSOLUTE AUTO 0.08 K/mm3 (0.00-0.23); BASOPHILS PERCENT AUTO 1 % (0-2); EOSINOPHILS ABSOLUTE AUTO 0.56 K/mm3 (0.00-0.68); EOSINOPHILS PERCENT AUTO 4 % (0-6); Hematocrit 46.6 % (37.0-53.0); Hemoglobin 14.3 g/dL (13.5-17.5); IMMATURE GRAN ABSOLUTE AUTO 0.08 K/mm3 (0.00-0.10); IMMATURE GRAN PERCENT AUTO 1 % (0-1); LYMPHOCYTES ABSOLUTE AUTO 1.33 K/mm3 (0.84-5.20); LYMPHOCYTES PERCENT AUTO 10 % (21-46); MONOCYTES ABSOLUTE AUTO 0.94 K/mm3 (0.16-1.47); MONOCYTES PERCENT AUTO 7 % (4-13); Mean Corpuscular HGB 28.1 pg (26.0-34.0); Mean Corpuscular HGB Conc 30.7 g/dL (31.5-36.5); Mean Corpuscular Volume 92 fL (80-100); NEUTROPHILS ABSOLUTE AUTO 10.16 K/mm3 (1.96-9.15); NEUTROPHILS PERCENT AUTO 77 % (41-73); Platelet Count 381 K/mm3 (150-400); RDW Coefficient Variation 14.4 % (11.7-14.2); RDW Standard Deviation 47.7 fL (35.1-46.3); Red Blood Cell Count 5.08 M/mm3 (4.30-5.90); White Blood Cell Count 13.15 K/mm3 (4.00-11.30)
[2020-06-17 04:02] LABS: Anion Gap 5 mmol/L (6-16); Blood Urea Nitrogen 26 mg/dL (8-24); Bun/Creatinine Ratio 43.1 (12.0-20.0); CO2, Blood 28 mmol/L (21-32); Calcium, Blood 8.9 mg/dL (8.5-10.1); Chloride, Blood 112 mmol/L (98-108); Glomerular Filtration Rate >60 (60-); Glucose, Blood 120 mg/dL (70-99); Potassium, Blood 4.3 mmol/L (3.5-5.5); Sodium, Blood 145 mmol/L (136-145)
--- NOTE | 2020-06-17 06:03 | NUR ---
SHIFT SUMMARY PT REMAINS INTUBATED WITHOUT SEDATION. NO CHANGES IN VENT SETTINGS. VS REMAIN STABLE. TF AT GOAL, NO RESIDUALS T/O SHIFT. RECTAL TUBE CONTINUES TO DRAIN LOOSE BROWN STOOL. MOSS CATH CHANGED FROM 16FR TO 18FR DUE TO LEAKING. CATH DRAINING YELLOW/ RED TINGED URINE. DURING MOSS CHANGE, PT HAD SMALL AMOUNT OF BLOOD FROM URETHRAL MEATUS. SCROTUM AND INNER THIGH ON BOTH LEGS REDDENED WITH WHAT APPEARS TO BE YEAST, NYSTATIN CREAM APPLIED TO AREA. T-MAX OF 100.1, ICE PACKS TO AXILLA. NO OTHER SIGNIFICANT CHANGES THIS SHIFT. WILL CONINUE TO MONITOR.
--- NOTE | 2020-06-17 07:54 | NUR ---
ASSUMED CARE RECEIVED REPORT FROM JANIA FERREIRA. PT IS LYING IN BED INTUBATED WITH 7.0 ETT, 27 AT THE TEETH (RT AWARE OF THIS). HE IS ON MECH VENT, SPONT. PS 5/5, 35%. PT NOT ALERT, AND REPONDS MINIMALLY TO NOXIOUS STIMULI - WILL ASSESS MORE IN DEPTH. MOSS IS PATENT AND DRAINING YELLOW URINE, PT ALSO HAS PATENT RECTAL TUBE DRAINING BROWN STOOL. VITALS ARE STABLE, SINUS TO SINUS TACH (90-110), MAP >65, SBP < 150; TEMP IS 99.9F. RR ARE 19. CPOT CURRENTLY OF 1, A SLIGHT GRIMACE ON HIS FACE AFTER RT SUCTIONED. BED LOW AND LOCKED.
--- NOTE | 2020-06-17 13:12 | NUR ---
UPDATE-FAMILY THE PATERNAL GRANDMA OF THE PT, GEORGIANA ARMSTRONG, CALLED THE ICU AND INFORMED ME THAT SHE HAD JUST FOUND OUT WHAT HAPPENED TO THE PT "30 MINUTES AGO". SHE IS ON THE VERBAL CONSENT RELEASE OF INFORMATION. SHE WAS GIVEN A RUNDOWN OF WHAT HAD HAPPENED, AND SHE WAS QUITE UPSET, BUT UNDERSTANDING OF HER GRANDSON's CONDITION. APPARENTLY, THERE ARE SOME FAMILY DYNAMIC-ISSUES WITHIN THEIR FAMILY. THE FATHER OF THE PT FOUND OUT TODAY WELL. I HAVE NOT HEARD FROM HIM, JESI ARMSTRONG, YET - HE IS ALSO ON THE LIST. I HAVE NO NUMBER TO GET AHOLD OF THE FATHER.
--- NOTE | 2020-06-17 19:59 | NUR ---
SHIFT SUMMARY NO MAJOR EVENTS T/O SHIFT. PT REMAINS ON VENT, SPONTANEOUS PS 5/5, 35%. NO SEDATION. SEE PREVIOUS NOTES/ASSESSMENT FOR NEURO ASSESSMENT. VITALS STABLE, SINUS RHYTHM TO SINUS TACH, 90-115; BP IS NORMAL TO SLIGHTLY ELEVATED (BUT STABLE); RR IS WNL ON SPONTANEOUS VENTILATION, 16-22. PT HAD A TEMPERATURE 100.0 AND HAD BEEN INCREASING (PER NOC NURSE) SO HE HAD ICE PACKS, AND FANS ON HIM, AND HIS TEMP HAD SLOWLY GONE DOWN TO 98.8 AND HIS ICE PACKS WERE TAKEN OFF. NOW HE IS 99.8 - FANS ARE BLOWING ON HIM TO KEEP HIM FROM GETTING TO WARM/GRACIELA. HE IS VERY WARM/GRACIELA TO TOUCH. WITH ORAL CARE PT WILL OFTEN BITE, GRIMACE, AND START COUGHING/GAGGING WHERE HE CONTRACTS HIS ABS THRUSTS HIS UPPER BODY FORWARD VIOLENTLY AND HIS FACE, CHEST, AND UPPER ARMS WILL FLUSH. HE USUALLY HAS COPIOUS YELLOW SECRETIONS (THICK) THAT WILL BE SUCTIONED, AND CLEAR THIN SECRETIONS SUCTIONED WITH YANKAUR. PT IS SPASTIC, AND MAY HAVE TWITCHING OR TREMERS PRESENT. OTHER THAN WHAT HAS BEEN MENTIONED, PT IS NOT SHOWING ANY SIGNS OF PURPOSEFUL MOVEMENT. SEE PREVIOUS UPDATE REGARDING PT's FATHER, AND PATERNAL GRANDMA BEING INFORMED ABOUT FLYNN's CONDITION TODAY. JESI IS PLANNING TO COME TOMORROW TO SEE HIS SON, THE PT. GRANDMA CAME IN THIS EVENING AND HAD A EXTENSIVE CONVERSATION WITH DR. LAUGHLIN. SHE THEN TALKED TO JESI ABOUT WHAT DR. LAUGHLIN HAD SAID. NO DECISIONS HAVE BEEN MADE TODAY FAR WHAT THE NEXT STEP IS FOR LFYNN. DR. LAUGHLIN MENTIONED POSSIBLY DISCUSSING WITH N[facility] AND [facility] A CALL TO DISCUSS THE CASE AND INQUIRE ABOUT FURTHER TREATMENTS AND THE POSIBILITY OF TRANSFERRING THE PT UP THERE. NOT SURE IF DR. LAUGHLIN WENT THROUGH WITH THAT OF THE TIME BEING. BED LOW AND LOCKED. NO RESTRAINTS. MOSS BAG PATENT AND DRAINING DARK YELLOW URINE (PLENTY OF), AND A RECTAL TUBE THAT IS PATENT DRAINING YELLOW STOOL. NS TKO INFUSING IN BOTH PERIPHERAL IVs. REPORTED OFF TO NOC JANIA.
--- NOTE | 2020-06-17 23:22 | NUR ---
ASSUMED CARE AT 1900 PT LAYING IN BED INTUBATED WITH VENT SETTINGS SPONTANIOUS 5/5, FIO2 35%. GAG PRESENT AND PT CHEWS ON ETT DURING ORAL CARE. PT NOT RESPONSIVE TO VERBAL OR PAINFUL STIMULI. PLANTAR REFLEX PRESENT, PERRLA, GAZE FIXED TO THE RIGHT. MAX TEMP 99.5, ICE PACKS AND FANS IN PLACE. HR 100-110. SBP 120-150. VHP INFUSING VIA OG AT 45ML/HR WITH 200ML WATER FLUSHES Q4HR; MINIMAL RESIDUALS. MOSS AND RECTAL TUBE IN PLACE AND DRAINING TO GRAVITY. SEE SHIFT ASSESSMENT FOR FULL ASSESSMENT.
--- NOTE | 2020-06-18 06:30 | NUR ---
END OF SHIFT SUMMARY PT CONT TO BE INTUBATED WITH VENT SETTINGS SPONTANIOUS 5/5, FIO2 35%. SCANT AMOUNT OF SECRETIONS NOTED. PT DOES NOT RESPOND TO VERBAL OR PAINFUL STIMULI. GAG PRESENT AND PT CHEWS ON ETT DURING ORAL CARE. PLANTAR REFLEX PRESENT. FIXED RIGHT DOWNWARD GAZE PRESENT. MAX TEMP 99.5. HR 80-105. SBP 120-150. VHP INFUSING VIA OG AT 45ML/HR WITH 200ML WATER FLUSHES Q4HR. FENTANYL GIVEN TWICE FOR PT GRIMICING AND COUGHING AGAINST VENT, CPOT 4; FENTANYL HELPFUL, CPOT 0. MOSS AND RECTAL TUBE PATENT AND DRAINING TO GRAVITY. WILL REPORT TO AM RN WHEN AVAILABLE.
--- NOTE | 2020-06-18 06:52 | NUR ---
ASSUMED CARE RECEIVED REPORT FROM JANIA CHURCH. PT ON VENT, SPON-PS 5/5, 35%. VHP INFUSING VIA OG TUBE AT GOAL RATE 45 ML/HR, WITH Q4H 200 ML WATER FLUSHES. MOSS PATENT DRAINING YELLOW URINE, AND RECTAL TUBE PATENT DRAINING BROWN STOOL. NS TKO X 2. AFEBRILE, 99.1; SINUS TO ST 90-105; MAP > 65. BED LOW AND LOCKED.
--- NOTE | 2020-06-18 14:59 | NUR ---
UPDATE PT's MOM, MAXI, CAME INTO THE ROOM AND WAS VERY UPSET, CRYING, IN DISTRESS. SHE SPOKE WITH DR. LAUGHLIN ABOUT NEEDING TO SIGN A DNR ORDER. TRUMAN TOOK CARE OF THAT IN THE ORDERS AND SPOKE WITH HER REGARDING FLYNN's PROGNOSIS. THE MOM, WHILE SADDENED BY THE NEWS IS MORE UNDERSTANDING OF HIS CONDITION AND PROGNOSIS AND WAS INQUIRING ABOUT WITHDRAWING CARE AND HOW WE WOULD TAKE CARE OF PAIN. SHE UNDERSTANDS THAT HER SON MAY EVEN LIVE AFTER EXTUBATION FOR A PERIOD OF TIME. HER MAIN CONCERN AT THIS POINT WAS ENSURING HER SON WAS NOT IN PAIN, AND THAT WE ARE TREATING ANY PAIN HE MAY BE HAVING. SHE IS WANTING HER SON's DAD TO SEE THE PT BEFORE ANY DECISIONS ARE MADE. WAITING ON JESI, THE FATHER NOW.
--- NOTE | 2020-06-18 19:34 | NUR ---
UPDATE+SHIFT SUMMARY NO MAJOR CHANGES T/O SHIFT RELATED TO PT's CONDITION/STATUS. 1 DOSE OF FENTANYL IV GIVEN EARLY ON FOR A CPOT OF 4 S/P SUCTIONING/REPOSITIONING/ORAL CARE. OTHER THAN THAT PT HAS MAINTAINED A CPOT OF 0-2 T/O DAY. DOES NOT APPEAR TO BE IN ANY PAIN. VITALS REMAIN CONSITENT WITH WHAT THEY HAVE BEEN THE LAST FEW DAYS OR SO. ON SPONTANEOUS MODE OF MECHANICAL VENTILATION, PS 5/5, 35% - NO CHANGES MADE. CONTINUES TO HAVE COPIOUS AMOUNTS OF YELLOW THICK SECRETIONS, NOT MUCH LATER ON IN THE SHIFT, THOUGH, BUT STILL PRESENT. PT CONTINUES TO HAVE OCCASSIONAL COUGHING/GAGGING 'FITS' WHERE HE FLEXES HIS ABDOMINAL PULSES AND HIS UPPER BODY JOLTS FORWARD RAPIDLY, AND HIS FACE, CHEST, SHOULDERS FLUSH BRIGHT RED. FANS TURNED BACK ON PT, TEMP GOT UP TO 100.0, BUT HAS SINCE GONE DOWN - 99.7F LAST CHECKED. RECTAL TUBE HAD CAME OUT, SO THAT WAS REPLACED AND PT RECEIVED A PARTIAL BATH FOCUSING ON HIS PERIANAL, GROIN, FEET, ARMPITS, FACE, AND CATHETER. BED LOW AND LOCKED. THE PT's DAD CAME IN THIS EVENING, AFTER DRIVING ALL NIGHT AND ONLY GETTING 20 MINUTES OF SLEEP PT WAS VERY TIRED, EMOTIONAL, AND STRUGGLED TO PROCESS THE COMPLEX AND SERIOUS INFORMATION BEING PROVIDED TO HIM. DR. LAUGHLIN AND MYSELF DISCUSSED WHAT HAPPENED THAT LED THE PT TO THIS POINT, THE TREATMENT THE PT HAS AND IS RECEIVING, WELL WHERE TO GO FROM HERE. DISCUSSED WITH BOTH MOTHER AND FATHER - THAT PROCEEDING WITH TREATMENT WOULD RESULT IN A TRACH AND PEG TUBE, AND THE NEED FOR A [facility]. WITHDRAWING CARE WAS ALSO DISCUSSED IN DETAIL. IT APPEARS THE MOM IS ON BOARD, THOUGH SHE HAS HAD MORE TIME TO PROCESS THIS SITUATION, WHILE THE DAD FOUND OUT YESTERDAY - HE MAY NEED MORE TIME. HE IS INSISTING THAT HE NEEDS TO SEE THE MEDICAL RECORDS, IS HIS RIGHTS. HE WAS INFORMED ABOUT WHAT THE NECESSARY STEPS WERE TO RECEIVE THOSE. HE HAS A FATHER WHO IS A SURGEON, AND A MOTHER WHO IS A PSYCHIATRIST, AND HE WOULD LIKE ONE OF THEM TO GO OVER THE RECORDS. AND HE WONT BE MAKING A DECISION TILL AT LEAST THEN. MEDICAL RECORDS OPENS SATURDAY. THE DYNAMICS BETWEEN THE MOM AND DAD OF THE PT ARE COMPLEX, BUT WERE CIVIL TOGETHER TODAY. THE DAD HAS REQUESTED (AND APPROVED VIA NURSE CLINICALNAN RIVERA) THAT HE CAN COME IN TOMORROW PRIOR TO VISITING HOURS ( HE LEFT THIS EVENING TO GET SLEEP, SO HE CAN BE RESTED FOR TOMORROW) TO HAVE SOME ALONE TIME WITH HIS SON AND TO CONTEMPLATE WHERE TO GO FROM HERE. DAD GOING THROUGH VARYING COMPLEX EMOTIONS. PALLIATIVE CARE WAS NOT HERE TODAY, BUT WAS TOLD BY GRANDMA THAT THEY WERE NOT INTERESTED IN PALLIATIVE CARE ANYWAY. THE MOM DID, HOWEVER, CHANGE HIS CODE STATUS TO DNR THIS EVENING. DR. LAUGHLIN MADE THAT CHANGE OFFICIAL. I DISCUSSED THIS ALL WITH CLOVER FROM [facility], SHE INFORMS ME THAT THEY ARE STILL GOING TO BE FOLLOWING THE CASE FOR NOW. CLOVER REQUESTED THAT WE DRAW BLOOD TO MONITOR RENAL AND LIVER FUNCTION, AND ALSO AN ABG. DR. LAUGHLIN ORDERED THE NECESSARY LABS. CLOVER STATED THAT [facility] WOULD GIVE US A CALL THIS EVENING, AND SHE REQUESTED THAT WE INFORM THEM WITH ANY CHANGES. WILL REPORT OFF TO NOC JANIA.
--- NOTE | 2020-06-18 22:57 | NUR ---
ASSUMED CARE AT 1900 PT LAYING IN BED INTUBATED WITH VENT SETTINGS SPONTANIOUS 5/5, FIO2 35%. PT SHOWING NO PURPOSEFUL MOVEMENT; UNRESPONSIVE TO PAINFUL STIMULI; PT RESPONDS TO ORAL CARE BY CHEWING ON ETT; GAG AND COUGH PRESENT DURING ORAL CARE; SLIGHT FIXED RIGHT GAZE AND EPISODES OF MILD TREMORS NOTED. HR 100-110. SBP 130-150. MAX TEMP 100.0; ICE PACKS AND FAN IN PLACE. JEVITY INFUSING VIA OG AT 45ML/HR (GOAL) WITH 200ML WATER FLUSHES Q4HR. MINIMAL RESIDUALS. MOSS AND RECTAL TUBE IN PLACE AND DRAINING TO GRAVITY. SEE SHIFT ASSESSMENT FOR FULL ASSESSMENT.
[2020-06-19 03:57] LABS: BASOPHILS ABSOLUTE AUTO 0.06 K/mm3 (0.00-0.23); BASOPHILS PERCENT AUTO 0 % (0-2); EOSINOPHILS ABSOLUTE AUTO 0.41 K/mm3 (0.00-0.68); EOSINOPHILS PERCENT AUTO 3 % (0-6); Hematocrit 44.2 % (37.0-53.0); Hemoglobin 13.8 g/dL (13.5-17.5); IMMATURE GRAN ABSOLUTE AUTO 0.04 K/mm3 (0.00-0.10); IMMATURE GRAN PERCENT AUTO 0 % (0-1); LYMPHOCYTES ABSOLUTE AUTO 1.16 K/mm3 (0.84-5.20); LYMPHOCYTES PERCENT AUTO 8 % (21-46); MONOCYTES ABSOLUTE AUTO 0.66 K/mm3 (0.16-1.47); MONOCYTES PERCENT AUTO 5 % (4-13); Mean Corpuscular HGB 28.2 pg (26.0-34.0); Mean Corpuscular HGB Conc 31.2 g/dL (31.5-36.5); Mean Corpuscular Volume 90 fL (80-100); Mean Platelet Volume 9.5 fL (9.1-12.4); NEUTROPHILS ABSOLUTE AUTO 12.23 K/mm3 (1.96-9.15); NEUTROPHILS PERCENT AUTO 84 % (41-73); Platelet Count 457 K/mm3 (150-400); RDW Coefficient Variation 13.8 % (11.7-14.2); RDW Standard Deviation 44.9 fL (35.1-46.3); Red Blood Cell Count 4.89 M/mm3 (4.30-5.90); White Blood Cell Count 14.56 K/mm3 (4.00-11.30)
[2020-06-19 04:15] LABS: Albumin, Blood 2.7 g/dL (3.4-5.0); Anion Gap 6 mmol/L (6-16); Blood Urea Nitrogen 18 mg/dL (8-24); Bun/Creatinine Ratio 30.8 (12.0-20.0); CO2, Blood 28 mmol/L (21-32); Calcium, Blood 8.9 mg/dL (8.5-10.1); Chloride, Blood 110 mmol/L (98-108); Creatinine, Blood 0.59 mg/dL (0.60-1.20); Glomerular Filtration Rate >60 (60-); Glucose, Blood 117 mg/dL (70-99); Phosphorus, Blood 3.7 mg/dL (2.5-4.9); Potassium, Blood 4.1 mmol/L (3.5-5.5); Sodium, Blood 144 mmol/L (136-145)
[2020-06-19 05:31] LABS: PCO2 Arterial 42.5 mmHg (35-45); PO2 Arterial 72.3 mmHg (80-100); pH Blood Arterial 7.43 (7.35-7.45)
--- NOTE | 2020-06-19 06:02 | NUR ---
END OF SHIFT SUMMARY PT CONT TO BE LAYING IN BED INTUBATED WITH VENT SETTINGS SPONTANIOUS 5/5, FIO2 35%. PT HAD MODERATE AMOUNT OF THIN SECREATIONS. PT HAS NOT PURPOSEFUL MOVEMENT, SOME EYE BLINKING THIS SHIFT BUT NO RESPONSE TO PAINFUL STIMULI. PT RESPONSIVE TO ORAL CARE BY CHEWING ON ETT, SOME YAWNING NOTED TOO. MAX TEMP 100.0. HR 80-100. SBP 130-150. JEVITY INFUSING VIA OG AT 45ML/HR (GOAL) WITH 200ML WATER FLUSHES Q4HR. MOSS AND RECTAL TUBE PATENT AND DRAINING TO GRAVITY. WILL REPORT TO AM RN WHEN AVAILABLE.
--- NOTE | 2020-06-19 07:40 | NUR ---
ASSUMED CARE RECEIVED REPORT FROM JANIA CHURCH. PT REMAINS ON VENTILATOR, SPON-PS 5/5, 35% FIO2 - TOLERATING WELL. CPOT OF 0. NS TKO X 2. JEVITY 1.2 TF INFUSING AT GOAL RATE OF 45 ML/HR, WITH Q4H 200 ML WATER FLUSHES PROGRAMED. MOSS PATENT AND DRAINING YELLOW URINE. RECTAL TUBE APPEARS PATENT, BUT WILL REASSESS IF APPROPRIATE TO CONTINUE THE STOOL IS NOT REALLY LIQUID, AND MORE SOFT, UNFORMED BROWN STOOL. ETT IS 7.0, 28 @ LIP. PT HAVING INTERMITTENT 'TWITCHING' OR SMALL SPASMS IN EXTREMITIES INCLUDING SHOULDERS - WELL HAVING OCCASSIONAL BITING MOVEMENTS WITH HIS MOUTH (VERY SOFT THOUGH). NO PURPOSEFUL MOVEMENT NOTED, AND PT IS OVERALL NOT HAVING MUCH MOVEMENT IN GENERAL. VITALS ARE STABLE: HR 80-105 - SINUS; BP IS NORMAL TO SLIGHTLY ELEVATED WHICH IS MOST LIKELY COMPENSATING FOR POTENTIAL INCREASE IN CRANIAL PRESSURE, MAP > 65 AND SBP < 160; AFEBRILE, 99.0 WITH FAN ON PT HE IS WARM-HOT TO TOUCH; RR 21 AND SPO2 94%. WILL CONTINUE TO MONITOR. PLAN FOR FATHER OF PT TO COME IN TODAY. BED LOW AND LOCKED.
--- NOTE | 2020-06-19 12:30 | NUR ---
UPDATE JESI ARRIVES TO VISIT SPEND TIME WITH SON, ALONE. HE IS HAVING MANY COMPLEX EMOTIONS, AND IS CURRENTLY PROCESSING EVERYTHING GOING ON BY TALKING AND VENTING ABOUT THE MOM, THE KIDS WHO DID DRUGS WITH HIS SON, AND DRUG CULTURE IN GENERAL. HE HAS MADE SEVERAL STATEMENTS REGARDING WANTING TO HAVE MEDICAL RECORDS SO THAT HE CAN HAVE ALL THE INFORMATION, AND EVIDENCE SO THAT HE CAN "... PROSECUTE THE KIDS THAT SOLD HIM THE DRUGS." HE WAS INSTRUCTED TO CONTACT MEDICAL RECORDS DURING THE WEEK AND HE PLANS TO DO SO ON 06/20/20. HE HAS INFORMED ME THAT HE WOULD LIKE FOR US TO DO SOME MORE TESTS, WHEN I ASKED HIM HE INITIALLY WASN'T SURE, BUT AFTER SOME CONTEMPLATING ASKED ABOUT ANOTHER CT SCAN. JESI HAS TOLD ME THAT HE "... DOESN'T FEEL LIKE FLYNN IS IN THERE TODAY." AND HE MENTIONED THAT HE "... KNEW HE WAS IN THERE YESTERDAY. I SAW HIM SQUEEZE MY HAND, HE LOOKED AT ME..." ETC... HE THEN REQUESTED A WIRELESS NETWORK ENGINEER TO COME BY IF POSSIBLE, TO ASSIST IN SOME PRAYER. I NOTIFIED HIM THAT WE DID HAVE A WIRELESS NETWORK ENGINEER SAMPLER PICKUP AND THAT WE COULD DO THAT. NO CHANGES TO PTs STATUS.
--- NOTE | 2020-06-19 13:11 | NUR ---
UPDATE IN ROOM WITH JESI (FATHER) AND PT, PER JESI's REQUEST. HE IS ANGEL/CRYSTAL AND WOULD LIKE SOMEONE TO PRAY WITH HIM AND TO TALK TO.
--- NOTE | 2020-06-19 13:33 | NUR ---
Pastoral care visitation conducted. Pt's father, Boubacar, was at the bedside. Boubacar asked if prayer could be provided for him and his son. Boubacar proceeded to divulge his current thoughts and emotions related to the pt's condition and circumstance. I offered empathic listening and validating feedback congruently. Prayer was extended and Boubacar was tearfully appreciative subsequently. I will remain available for further pastoral support prospectively.
--- NOTE | 2020-06-19 19:30 | NUR ---
SUMMARY NO MAJOR CHANGES TO PATIENT. SEE PREVIOUS ASSESSMENTS, AND NOTES FOR CONDITION. SEE PREVIOUS NOTE REGARDING BETH VISIT, AND HE ALSO CALLED AND TOLD ME THAT THE DAY OF THE CARDIAC ARREST, THE GIRLFRIEND HAD ACCIDENTALLY PUT A LOT OF EUCALYPTUS OIL IN HIS TEA, AND HE WAS CONCERNED THAT IT HAD POSSIBLY BEEN A FACTOR IN THE ARREST. I PASSED IT ALONG TO DOCTOR, AT THIS POINT THERE IS NO REASON TO BELIEVE THAT IT DID. MOM CAME BY THIS EVENING, AND EXPRESSED THAT SHE WOULD LIKE TO MAKE HIM COMFORTABLE AND TO TAKE OUT THE TUBE, BUT SHE NEEDS 2 THINGS TO HAPPEN: 1. TO TELL JESI HER DECISION TO GO THROUGH WITH IT, BUT HE HAS NOT RESPONDED TO HER ALL DAY. & 2. SHE WOULD LIKE THE PTs PARTNER GISELLA (SPELLING?) TO VISIT TOMORROW, SHE REQUESTED IF SHE COULD COME IN EARLY, I TOLD HER I COULDN'T PROMISE THAT BUT ILL PASS IT ALONG I AM NOT HERE TOMORROW - BUT THAT SHE SHOULD BE PREPARED TO COME DURING VISITING HOURS: [phone]. I ALSO TOLD HER TO MAKE SURE TO LET JESI KNOW ABOUT THIS, HE IS LIKELY GOING TO TRY AND VISIT FLYNN. HE IS ALSO COMING IN TOMORROW TO GO TO MEDICAL RECORDS, TO RECEIVE FLYNN's RECORDS FOR HIS COMPLETE HOSPITALIZATION. THE (MATERNAL) GRANDMA CALLED TODAY INQUIRING ABOUT Cam CASE, AND ASKING ABOUT HOW SHE CAN BECOME THE NEW POWER OF ATTORNY, OR AT LEAST BECOME THE DECISION MAKER. SHE THEN PROCEEDED TO TELL ME WHAT MAXI IS AN UNFIT MOTHER, AND TOLD ME SHE WAS GOING TO TAKE IT TO THE LEGAL SYSTEM, I COULDN'T HELP HER WITH THESE ISSUES - JUST LISTENED TO HER REQUESTS AND ANSWERED WITHOUT SHARING ANY INFORMATION. I ENCOURAGED HER TO TALK TO THE PARENTS. SPOKE WITH [facility]'s IRRIGATION TECHNICIAN DIOGENES, WHO INFORMED ME ORIGINALLY THAT THEY WERE OFF THE PTs CASE, BUT SINCE THE MOM (WHO HAD A CONVERSATION WITH ME STATING SHE WANTS FLYNN TO BE AN ORGAN DONOR, SHE BELIEVES THAT FLYNN WOULD WANT THIS, AND THAT SHE KNOWS HE WOULD WANT TO HELP OTHERS) EXPRESSED INTEREST IN ORGAN DONATION THAT WILL OPEN THE CASE UP AND ARE WILLING TO TRY, THOUGH IT MAY NOT WORK WITH THE STRICT PARAMETERS TO BE MET REQUIRED FOR VIABLE DONATION. EYES AND TISSUE MAY STILL BE POSSIBLE. BASSICALLY THEY WANT TO AT LEAST TRY. I CALLED THE MOM AND ASKED HER IF IT WOULD BE APPROPRIATE FOR THEM TO CALL HER TONIGHT, TO AT LEAST START THE PROCESS, AND MAXI STATED THIS WAS OKAY AND SHE WOULD PREFER THEM CALL JANAY, THEN LATER. REPORTED OFF TO TEDDY CHURCH RN.
--- NOTE | 2020-06-19 21:53 | NUR ---
ASSUMED CARE AT 1900 PT LAYING IN BED MAKING NO PURPOSEFUL MOVEMENT; COUGH AND GAG PRESENT; PLANTAR REFLEX MINIMAL; OCCATIONALLY EYES WILL HALF WAY OPEN AND BLINK BUT RETURNS TO SHUT AFTER A FEW MIN; OCCATIONAL YAWNS NOTED TOO. VENT SETTINGS SPONTANIOUS 5/5, FIO2 35%. MODERATE AMOUNT OF SECREATIONS SUCKTIONED. AFIBRILE. HR 80-90. SBP 125-140. JEVITY INFUSING AT 50ML/HR (GOAL) WITH 200ML WATER FLUSHES Q4HR. MOSS AND RECTAL TUBE DRAINING TO GRAVITY. SEE SHIFT ASSESSMENT FOR FULL ASSESSMENT.
--- NOTE | 2020-06-19 22:23 | NUR ---
PNTB UPDATE PNTB CALLED AND UPDATED RN ABOUT CONVERSATION BETWEEN PT MOTHER MAXI AND DIOGENES FROM [facility]. THE PLAN RIGHT NOW IS A TEAM FROM [facility] TO BE AT [facility] TOMORROW, 06/20/20, AROUND 11AM TO ASSESS PT AND MEET WITH MAXI IN PERSON. IF PT IS A CANADIT, [facility] IS INTERESTED IN RETRIEVING PT KIDNEYS AND LIVER AND THE PLAN WOULD BE TO EXTUBATE ON Saturday06/22/20. ALSO TO MOVE FORWARD, PNTB STATED THEY MUST DISCUSS SITUATION WITH PT FATHER AND HE MUST BE "OK" WITH THIS FOR PNTB TO MOVE FORWARD.
--- NOTE | 2020-06-20 05:51 | NUR ---
END OF SHIFT SUMMARY PT CONT TO BE INTUBATED WITH VENT SETTINGS SPONTANIOUS 5/5, FIO2 35%. PT TEMPORARILY SUSTAINED O2 SAT BETWEEN 85-90%, FIO2 THEN INCREASED 40%; PT THEN HAD LARGE AMOUNT OF THICK SECREATIONS FROM COUGHING; ABLE TO DECREASE FIO2 BACK TO 35% DUE TO 02 SAT >98%. PT HAS NO PURPOSEFUL MOVEMENT, NO CHANGES TO NEURO STATUS. AFIBRILE. HR 80-105. SBP 125-150. JEVITY INFUSING VIA OG AT 50ML/HR WITH 200ML WATER FLUSHES Q4HR. MOSS AND RECTAL TUBE IN PLACE AND DRAINING TO GRAVITY. NO PHONE CALLS DURING THE NIGHT. WILL REPORT TO AM RN WHEN AVAILABLE.
--- NOTE | 2020-06-20 08:15 | NUR ---
ASSESSMENT- PT COMATOSE, NO RESPONSE TO VERBAL OR PAINFUL STIMULUS. DOES HAVE COUGH, ORALLY INTUBATED, TUBE SECURE. LUNGS CLEAR, DIMINISHED RIGHT BASE. SUCTIONED MODERATE AMOUNT YELLOW SECRETIONS. SPONTANEOUS MODE-RESPIRATORY RATE 20'S, TIDAL VOLUMES 475-500'S. NSR. BP STABLE. SKIN FLUSHED, TEMP 99.5 PIV X 2 INTACT, NS TKO X 2. ABDOMEN SOFT, RESIDUAL 5 CC REPLACED, TUBE FEEDING JEVITY GOAL AT 50 CC/HR. UO VIA MOSS. SCANT FLUID IN RECTAL TUBE-D/C. REPOSITIONED.
--- NOTE | 2020-06-20 09:51 | NUR ---
DR HOLGUIN HERE-UPDATED, ASSESSED PT. VSS
--- NOTE | 2020-06-20 12:39 | NUR ---
PNTB- ESTEBAN AND STAFF HERE TO CONSULT. HAVE DECLINED TO PURSUE AND DONATION AFTER CARDIAC . DO NOT NEED TO CALL BEFORE EXTUBATION. PNTB NOTIFIED PT'S MOM. DO CALL WITH TIME OF CARDIAC .
--- NOTE | 2020-06-20 12:40 | NUR ---
VSS. MODERATE AMOUNT ETT SECRETIONS, STRONG COUGH. COARSE RHONCHI. NEURO UNCHANGED
--- NOTE | 2020-06-20 14:55 | NUR ---
PT'S FAMILY-DAD AND GIRLFRIEND HERE. UPDATED, QUESTIONS ANSWERED. BATH, LINEN CHANGE DONE. STRONG COUGH, MODERATE AMOUNT SECRETIONS. RASH PRESENT LOWER ABDOMEN, THIGHS, LOWER BACK. UPDATE TO DR. HOLGUIN.
--- NOTE | 2020-06-20 15:15 | NUR ---
VS UNCHANGED. SPUTUM SENT. UNIX ADMINISTRATOR AT BEDSIDE WITH PT'S DAD AND GIRLFRIEND
--- NOTE | 2020-06-20 17:33 | NUR ---
Spiritual care note: I met with pt's father, Boubacar, at bedside. He appears calm, but states "I am trying to hold this all in so I don't explode." I normalized his emotions and offered theraputic listening. He appears to be processing Jenaro's poor prognosis. Boubacar would like to remove all life support "and see how he does." He would also like Jenaro to be a Full Code. Then, he shifts, telling me that "I don't want my son to live the rest of his life in a bed" and "I know this is bad." Boubacar is LDS and is appreciative of prayer and spiritual support. Later in the day, I met with Jenaro's gf for quite awhile at the bedside. She, too, is processing all that has happened. So far, all family that I have met are appreciaitve of prayer and spiritual support. I will remain available.
--- NOTE | 2020-06-20 17:55 | NUR ---
DISCUSSED PLAN OF CARE WITH PT'S DAD-UPDATE GIVEN. VS UNCHANGED. TOLERATING SPONTANEOUS MODE, RASH ON PELVIS AREA AND CHEST MUCH BETTER. DR. HOLGUIN REVIEWED.
--- NOTE | 2020-06-20 19:30 | NUR ---
PATIENT REMAINS INTUBATED WITH VENT SET SPONT PS 5 PEEP 5 FIO2 35% SPONTANEOUS MOVEMENT WITH STIMULI, BITING DOWN ON SUCTION ONCE DURING ORAL CARE. WHEN EYES ARE OPENED EYES ARE ROVING BUT NOT FOCUSING ON ANYTHING. OCCASIONAL COUGH. NO PURPOSEFUL MOVEMENTS SEEN. OG IN PLACE WITH JEVITY AT 50 CC/HR GOAL RATE.
[2020-06-21 03:46] LABS: BASOPHILS ABSOLUTE AUTO 0.06 K/mm3 (0.00-0.23); BASOPHILS PERCENT AUTO 0 % (0-2); EOSINOPHILS ABSOLUTE AUTO 0.55 K/mm3 (0.00-0.68); EOSINOPHILS PERCENT AUTO 3 % (0-6); Hematocrit 43.9 % (37.0-53.0); IMMATURE GRAN ABSOLUTE AUTO 0.06 K/mm3 (0.00-0.10); IMMATURE GRAN PERCENT AUTO 0 % (0-1); LYMPHOCYTES ABSOLUTE AUTO 1.19 K/mm3 (0.84-5.20); LYMPHOCYTES PERCENT AUTO 7 % (21-46); MONOCYTES ABSOLUTE AUTO 0.71 K/mm3 (0.16-1.47); MONOCYTES PERCENT AUTO 4 % (4-13); Mean Corpuscular HGB 28.3 pg (26.0-34.0); Mean Corpuscular HGB Conc 31.9 g/dL (31.5-36.5); Mean Corpuscular Volume 89 fL (80-100); NEUTROPHILS ABSOLUTE AUTO 14.96 K/mm3 (1.96-9.15); NEUTROPHILS PERCENT AUTO 85 % (41-73); Platelet Count 472 K/mm3 (150-400); RDW Coefficient Variation 14.2 % (11.7-14.2); RDW Standard Deviation 44.7 fL (35.1-46.3); Red Blood Cell Count 4.94 M/mm3 (4.30-5.90); White Blood Cell Count 17.53 K/mm3 (4.00-11.30)
[2020-06-21 04:00] LABS: Anion Gap 7 mmol/L (6-16); Blood Urea Nitrogen 17 mg/dL (8-24); Bun/Creatinine Ratio 27.6 (12.0-20.0); CO2, Blood 28 mmol/L (21-32); Chloride, Blood 106 mmol/L (98-108); Creatinine, Blood 0.62 mg/dL (0.60-1.20); Glomerular Filtration Rate >60 (60-); Glucose, Blood 105 mg/dL (70-99); Potassium, Blood 4.3 mmol/L (3.5-5.5); Sodium, Blood 141 mmol/L (136-145)
--- NOTE | 2020-06-21 05:42 | NUR ---
MOSS LEAKING SMALL AMT OF URINE ON GOWN, THERE WAS 8CC OF WATER IN BALLOON, REPLACED WITH 10CC STERILE WATER.
--- NOTE | 2020-06-21 06:25 | NUR ---
SUMMARY PATIENT REMAINS INTUBATED, CONTINUES TO HAVE A HARSH COUGH WITH COPIOUS AMT OF CREAMY YELLOW SPUTUM VENT SETTINGS SPONT PS 7 PEEP 5 FIO2 35% PATIENT CONTINUES TO HAVE ROVING EYES ONLY OPENING EYES SLIGHTLY WITH STIMULI. GROSS MOVEMENT TO EXTREMITIES WITH STIMULI, NO PURPOSEFUL MOVEMENT SEEN. OG IN PLACE WITH TUBE FEEDING AT GOAL RATE OF 50 CC/HR AND WATER 200 CC Q4HR, HAVING SCANT RESIDUALS.
--- NOTE | 2020-06-21 08:30 | NUR ---
ASSESSMENT- PT COMATOSE, DOES OPEN EYES SPONTANEOUSLY, NO RESPONSE TO COMMANDS. DOES HAVE SOME POSTURING MOVEMENT RIGHT ARM TO PAINFUL STIMULUS. CHEWING MOTIONS ON ETT. PERRL. NSR. BP STABLE. PIV X 2 INTACT. NS TKO. NEW ANTIBIOTIC TO START. LUNGS COARSE, DIMINISHED RIGHT BASE. ABDOMEN SOFT, TUBE FEEDING VIA OGT JEVITY AT 50 CC/HR GOAL, RESIDUAL LOW-REPLACED. UO VIA MOSS. DIAPHORETIC, AM CARE DONE. SKIN VICTOR HUGO AREA PEELING, DRY. REPOSITIONED. DR. HOLGUIN HERE
--- NOTE | 2020-06-21 10:14 | NUR ---
VSS. TOLERATING VENT SETTING WITH TIDAL VOLUMES 500'S, SUCTIONED FOR MODERATE TO LARGE AMOUNT CREAM SECRETIONS.
--- NOTE | 2020-06-21 11:35 | NUR ---
VS UNCHANGE. 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 ATTEMPT MULTIPLE TIMES TO CALL PT'S MOTHER MECHE TO ARRANGE CARE CONFERENCE WITH DR. HOLGUIN, PALLIATIVE CARE AND SPIRITUAL CARE.
--- NOTE | 2020-06-21 13:30 | NUR ---
FAMILY CONFERENCE- ATTEMPT TO ARRANGE CONFERENCE TODAY WITH BOTH PARENTS AND SIGNIFICANT OTHER. MOTHER AGREEABLE. DAD STATES THAT HIS MOTHER (PT'S GRANDMOTHER) IS SUPPOSED TO VISIT TODAY AND HE WOULD WANT CONFERENCE TOMORROW. SET FOR 1400 06/21. PT'S DAD VOICES CONCERNS REGARDING HE IS NOT RECEIVING INFORMATION THAT HE HAS REQUESTED. WANTS ACTUAL FILMS OF PT'S STUDIES AND MEDICAL RECORD. STATES HE DOES NOT TRUST ANY ONE TELLING HIM HOW HIS SON IS-NEEDS TO READ THE INFORMATION TO MAKE A DECISION. STATES MEDICAL RECORDS REFUSED HIS REQUEST AND HAS CONTACTED AN OMBUDSMEN. ATTEMPT TO ANSWER QUESTIONS. UPDATE TO DR. HOLGUIN. ETHICS CONSULT ORDERED.
--- NOTE | 2020-06-21 14:24 | NUR ---
PT'S GRANDMOTHER HERE-UPDATED, QUESTIONS ANSWERED. VSS
--- NOTE | 2020-06-21 15:31 | NUR ---
Ethics consult order received and processed. Chart notes reviewed and conversations facilitated with singleton clinical stakeholders. Problem reported: the incapacitated adult principal has two parents who are both expresing interest in obtaining copies of the principals medical record. The staff are unclear if it is legally appropriate for them to furnish this information to the requestors. In consultation with the community chest officer, I provided the following clarification: HIPPA's minimum necessary standard allows for both parents to have access to any clinical reports, histories or notes from the electronic health record, that in the providers judgement, would be useful and necessary in helping the proxies arrive at a medical decision 42 CFR 164.502(b) 164.514 (d). If the education offered to the parents does not resolve the conflict between them regarding the goals of care, it is the recommendation of this ethicist and his supporting panel, that we default to the mom for directional guidance as she been more actively involved in the process, and unlike the father is not reported to be presently estranged from her son. Thank you for this consult. Jeremy Gill Th.D.
--- NOTE | 2020-06-21 16:04 | NUR ---
PT'S SECOND GRANDMOTHER HERE-UPDATED AND QUESTIONS ANSWERED. VSS. CONTINUE TO MONITOR.
--- NOTE | 2020-06-21 18:20 | NUR ---
PT TOLERATING VENT SETTINGS, STILL WITH MODERATE AMOUNT SECRETIONS. WASHED HAIR, TOLERATED WELL. VSS. CONTINUE TO MONITOR
--- NOTE | 2020-06-21 20:51 | NUR ---
PATIENT REMAINS INTUBATED WITH VENT SPONT PS 7 PEEP 5 FIO2 35% CONTINUE TO SUCTION COPIOUS AMOUNT OF CREAMY YELLOW SPUTUM VIA ETT. PATIENTS COUGHING AND HAVING GROSS MOVEMENTS TO EXTREMITIES WITH STIMULI. KEEPING EYES MOSTLY SHUT BOTH EYES ROVING BUT NOT FOCUSING ON ANY THING. OG IN PLACE WITH TUBE FEEDING AT GOAL RATE OF 50 CC/HR WITH WATER 200 CC Q4HR.
[2020-06-22 03:53] LABS: BASOPHILS ABSOLUTE AUTO 0.06 K/mm3 (0.00-0.23); BASOPHILS PERCENT AUTO 0 % (0-2); EOSINOPHILS ABSOLUTE AUTO 0.43 K/mm3 (0.00-0.68); EOSINOPHILS PERCENT AUTO 3 % (0-6); Hematocrit 45.9 % (37.0-53.0); Hemoglobin 14.3 g/dL (13.5-17.5); IMMATURE GRAN ABSOLUTE AUTO 0.04 K/mm3 (0.00-0.10); IMMATURE GRAN PERCENT AUTO 0 % (0-1); LYMPHOCYTES ABSOLUTE AUTO 1.12 K/mm3 (0.84-5.20); LYMPHOCYTES PERCENT AUTO 8 % (21-46); MONOCYTES PERCENT AUTO 4 % (4-13); Mean Corpuscular HGB 27.6 pg (26.0-34.0); Mean Corpuscular HGB Conc 31.2 g/dL (31.5-36.5); Mean Corpuscular Volume 89 fL (80-100); Mean Platelet Volume 9.7 fL (9.1-12.4); NEUTROPHILS ABSOLUTE AUTO 11.26 K/mm3 (1.96-9.15); NEUTROPHILS PERCENT AUTO 83 % (41-73); Platelet Count 468 K/mm3 (150-400); RDW Coefficient Variation 14.3 % (11.7-14.2); RDW Standard Deviation 45.8 fL (35.1-46.3); Red Blood Cell Count 5.18 M/mm3 (4.30-5.90); White Blood Cell Count 13.51 K/mm3 (4.00-11.30)
--- NOTE | 2020-06-22 04:55 | NUR ---
PATIENT RESP DOWN TO 10 WITH BIOX DROPPING TO 86-88% THEN BACK TO 16 WITH BIOX 93% CYCLING APROX EVERY 2 MIN. RT NOTIFIED AND PLAN TO CHANGE VENT TO AC
--- NOTE | 2020-06-22 06:03 | NUR ---
SUMMARY PATIENT REMAINS INTUBATED, VENT SETTINGS CHANGED TO AC 16, TV 500, PEEP 5, FIO2 40% BECAUSE OF CONTINUED DROP IN BIOX TO 87% HARSH COUGH CONTINUES WITH LARGE AMT OF THICK CREAMY YELLOW SPUTUM. PATIENT OPENS EYES SLIGHTLY SPONT, WITH EYES ROVING NOT SEEMING TO FOCUS. GROSS MOVEMENT SEEN TO ARMS WHEN PATIENT COUGHING. WITH ORAL CARE PATIENT CHEWING AND SUCKING ON ETT AND SUCTION WAND. NO REACTION TO VERBAL STIMULI. OG REMAINS IN PLACE WITH TUBE FEEDING WITH JEVITY AT 50 CC/HR WITH 200 CC WATER Q4HR WITH NO RESIDUAL T/O NIGHT.
--- NOTE | 2020-06-22 08:00 | NUR ---
ASSUMED CARE RECEIVED REPORT FROM JANIA SCHULZ. PT IS ON VENT, AC16/500/5/45% FIO2; CHANGED FROM SPONTANEOUS PS - RECENTLY. CURRENTLY VITALS STABLE, SPO2 IN THE 88-94% RANGE. NO PURPOSEFUL MOVEMENT NOTED. UNRESPONSIVE. JEVITY 1.2 TF INFUSING VIA OG TUBE AT GOAL RATE OF 50 ML/HR, WITH 200 ML WATER FLUSHES Q4H. MOSS CATHETER PATENT AND DRAINING YELLOW URINE. NO RECTAL TUBE. SCDs ON BLEs. BED LOW AND LOCKED. CARE CONFERENCE SCHEDULED TODAY AT 1400 WITH THE MOM, DAD, GIRLFRIEND, AND WITH THE MEDICAL-NURSING TEAM: CASSI FROM PALLIATIVE CARE, LAISHA THE FABRICATOR SPECIAL ITEMS (PRIMARILY FOR THE DAD'S BENEFIT), DR. HOLGUIN, AND THIS BEDSIDE RN. WILL DISCUSS THE NEEDS OF THE FAMILY, AND THE NEEDS OF THE PT.
[2020-06-22 10:33] LABS: Vancomycin, Trough 11.2 ug/mL (5.0-10.0)
--- NOTE | 2020-06-22 10:36 | NUR ---
UPDATE PT NOW ON SPONTANEOUS-PS 11/28, 45% FIO2 VIA RT @ 1025 SPO2 94%, PT IS TOLERATING CHANGE OF VENT SETTINGS. CONTINUES TO HAVE COPIOUS SECRETIONS. WILL CONTINUE TO MONITOR.
--- NOTE | 2020-06-22 17:20 | NUR ---
Spiritual care note: I met with Jenaro's mom, dad, gf at various times throughout the afternoon. Each is processing losing Jenaro differently. Mom is talkative and tearful, dad needs to feel in-control, GF very quiet. Faciltated family prayer at bedside, with dad telling me how to pray. All agree that Jenaro would not want to remain "this way." Plan is to withdraw care and shift to comfort at 8pm. RN doing a great job orchestrating this as each faction of family needs to be alone with pt. Mom and dad do not get along. Buckle Stapler will be available.
--- NOTE | 2020-06-22 19:28 | NUR ---
SHIFT SUMMARY/FAMILY CONFERENCE FLYNN's MOM, DAD, AND LONG-TIME GIRLFRIEND MET WITH DR. HOLGUIN, SONIA FROM PALLIATIVE CARE, AND LAISHA THE INCUBATOR MACHINE OPERATOR -- AT 1415 IN THE ICU WAITING ROOM. IT WAS DECIDED (EVERYONE WAS ON THE SAME GENERAL PAGE) TO LIBERATE FLYNN FROM THE VENT TONIGHT, AND TO PUT HIM ON COMFORT CARE MEASURES. THE LIBERATION WILL BE DONE AT 2000 TONIGHT, JESI AND HIS WILL BE PRESENT FOR THIS, AND AT LEAST 30 MINUTES AFTERWORD. AROUND 2029, MAXI (MOM), WILL COME IN TO SAY HER GOODBYES, AND TO CLEAN/BRUSH HIS HAIR, BRAID IT AND CUT THE LORY FOR MOMENTOS. WHEN SHE LEAVES, SHE SAYS SHE WILL BE GONE FOR GOOD AND WOULD LIKE A PHONE CALL WHEN HE PASSES AWAY. JESI (DAD) WOULD LIKE TO COME BACK WHEN MAXI LEAVES, AND WISHES TO SPEND THE NIGHT WITH HIM. THE FAMILY HAS BEEN EXTENSIVELY EDUCATED ON WHAT TO EXPECT, AND WHAT MAY HAPPEN WHEN HE IS LIBERATED FROM THE VENT. JESI STILL WOULD LIKE TO BE PRESENT DURING THE LIBERATION OF THE VENT. THIS RN HAS WORKED CLOSELY WITH SONIA FROM PALLIATIVE CARE, AND DR. HOLGUIN REGARDING COMFORT CARE MEASURES. JESI EXPRESSED CONCERN WITH WANTING TO ENSURE THE PT STILL HAS NUTRITION, AND ANTIBIOTICS GOING. SO PER HIS REQUEST, CLINIMIX WILL BE STARTED IV AT 60ML/HR (INSTEAD OF TF VIA OG TUBE OR EVEN NG TUBE TO AVOID ASPIRATION). VANCOMYCIN WILL ALSO BE CONTINUED IV. PRIMARY CONCERN WITH FLYNN, AND HIS LIBERATION FROM THE VENT IS THE POTENTIAL AGITATION, AND THE COPIOUS, THICK SECRETIONS HE HAS BEEN HAVING. I REPORTED OFF NOC RN. EXTUBATION AT 1999, AND REMOVAL OF OG TUBE. COMFORT CARE ORDERS ARE PLACED IN [facility]. MOSS WILL REMAIN IN PLACE. AND MOM WOULD LIKE TO REQUEST TO BE CALLED WHEN IT HAPPENS, HOME WAS NOT SOMETHING THEY WANTED TO DISCUSS DURING THE MEETING. STILL NEEDS TO BE DETERMINED. THE GIRLFRIEND, WAS ABLE TO SAY HER GOODBY FROM [phone]. BED LOW AND LOCKED.
--- NOTE | 2020-06-22 19:29 | NUR ---
Multiple family meetings review with overnight cashier nurse and RT plan of care for extubation, airway maintenance, secretions, nutrition support per family request and pain management. Ativan doses for comfort and anexiety and avilable dosing for seizure care if needs. Suggest nasal trumpet and positoning for airway comfort. Will follow up with family for planning.
--- NOTE | 2020-06-23 00:30 | NUR ---
ASSUMED CARE/ EXTUBATION PT EXTUBATED AT 2009 WITH FATHER AND HIS AT BEDSIDE. PRN MORPHINE AND ATIVAN GIVEN. PT TOLERATED EXTUBATION WITH MODERATE AMOUNT OF SECREATIONS; 10L OXYMIZER IN PLACE AND O2 SAT >90%. FATHER AND LEFT AROUND 2029 WHEN PT MOTHER ARRIVED. PT CONT TO COUGH AND HAVE COPIOUS THICK SECTIONS. ATROPINE SL DROPS BEING USED, SCOPOLOMINE PATCH IN PLACE NOW TO BACK OF RT ARM. AROUND 2244 PT WAS REPOSITIONED ON HIS RT SIDE AND WAS WET BREATHING WITHOUT RELIEF FROM ORAL SUCTIONING. RT IN TO PERFORM DEEP SUCTION, LARGE AMOUNT OF SECREATIONS SUCTIONED. PT NOW SHOWING "GUPPY" BREATHING. PRN ROXANOL GIVEN AND HELPFUL. PT FATHER NOTIFIED, HE AND HIS ARRIVED TO ICU ABOUT 0. WILL CONT TO MEDICATE NEEDED FOR COMFORT. PT MOTHER, FATHER, STEP-MOM, GRANDMOTHER, AND GIRLFRIEND AT BEDSIDE.
--- NOTE | 2020-06-23 04:48 | NUR ---
UPDATE PT TEMP UP TO 100.7. ICE PACKS AND FAN IN PLACE. FAMILY AT BEDSIDE DISCUSSING HEADING HOME TO SLEEP FOR A FEW HOURS AND WILL BE BACK IN THE AM.
--- NOTE | 2020-06-23 05:00 | NUR ---
UPDATE FAMILY HAS LEFT BEDSIDE TO GET SOME SLEEP. PT FATHER MAKES COMMENTS ALONG THE LINES OF "WE HAVE TO GIVE HIM 30 DAYS, AFTER 30 DAYS WE CAN LET HIM GO.", "WE HAVE TO HAVE HOPE.", "IT HAS ALREADY BEEN 17 DAYS, WE JUST HAVE TO WAIT ANOTHER TWO WEEKS". PT STEP-MOM WAS VERY CONCERNED ABOUT PT O2 SAT AND TEMP OF 100.7. PT FATHER HAS ALSO REQUESTED THAT WE "DO NOT MEDICATE WITH ROXINAL UNLESS HE NEEDS IT". FAMILY LEFT VERY GREATFUL FOR ALL THE NURSING STAFF HAS DONE AND WILL BE BACK LATER TODAY.
--- NOTE | 2020-06-23 06:39 | NUR ---
END OF SHIFT SUMMARY PT LAYING IN BED NOT RESPONSIVE TO VERBAL OR PAINFUL STIMULI. PT SEEMS COMFORTABLE AND NOT FIGHTING FOR BREATH; DRY SOUNDING BREATH NOW. PT ON 2L NC WITH O2 SAT >95%. VSS. TEMP OF 100.7 EARLIER, ICE PACKS AND FAN IN PLACE. MOSS PATENT AND DRAINING TO GRAVITY. CLINAMIX INFUSING. THROUGHOUT SHIFT MORPHINE IV GIVEN X4, ROXANOL GIVEN X2, ATIVAN GIVEN X4, ATROPINE SULF X3, SCOPOLOMINE PATCH IN PLACE. SECREATIONS UNDER CONTROL RIGHT NOW, PT TOLERATING LIGHT REPOSITIONING. WILL REPORT TO AM RN WHEN AVAILABLE.
--- NOTE | 2020-06-23 07:16 | NUR ---
ASSUMED CARE RECEIVED REPORT FROM JANIA CHURCH. PT IS LYING DOWN ON LEFT SIDE, UNRESPONSIVE, AND WITH A CURRENT CPOT OF 0. WARM TO TOUCH, WITH PULSES PRESENT. MOSS PATENT AND DRAINING YELLOW URINE. NO FAMILY AT BEDSIDE. BED LOW AND LOCKED.
--- NOTE | 2020-06-23 09:07 | NUR ---
Comfort Care Visit Pt resting in bed upon arrival. bilingual student tutor iLsa accompanies this RN during visit. Pt is non responsive and appears comfortable. No family at bedside at this time. Spoke with Bedside RN Cassie and discussed case. Cassie reports concerns regarding Pt's father's understanding of Pt's condition and may be hanging onto false hope. Palliative Care will remain available for symptom management, supportive, and therapeutic visits.
--- NOTE | 2020-06-23 15:39 | NUR ---
UPDATE PT TRANSFERRING TO ROOM 356 - REPORTED OFF TO JANIA VANEGAS. MAXI AT BEDSIDE PRIOR TO TRANSFER, AND IS WITH LAISHA (SALES REPRESENTATIVE SALES MANAGER) CURRENTLY, WILL SHOW HER WHERE THE ROOM IS. PT RECEIVING ATIVAN AND MORPHINE IV ALONG WITH ROXENOL AND ATROPINE SL T/O THE DAY. INTERMITTENTLY REQUIRING NT + YANKAUR SUCTIONING, HAVING COPIOUS YELLOW/CLEAR, THICK SECRETIONS. ORAL CARE DONE VIA ORAL CARE KITS (VAP). CPOT 0-2 T/O SHIFT. OUT OF ICU AT 1540.
--- NOTE | 2020-06-23 16:13 | NUR ---
PT TRANSFERED PT TRANSFERED TO ROOM 356. MOTHER AT BEDSIDE DURING TRANSFER. PT REPOSISTIONED TO THE LEFT TO HELP WITH SECRETIONS. ATROPING, ROXANOL, AND ATIVAN ADMINISTERED. SUCTIONED PRIOR TO LEAVING ROOM.
--- NOTE | 2020-06-23 18:13 | NUR ---
Spiritual care note: Lengthy visit with Jenaro's mom, Ruba. Provided prayer and anticipatory bereavement tour counselor to good effect. Encouraged continued sobriety and self-care. Ruba plans to return to [facility] and not return. Children'S Choir Director services will remain available to family.
--- NOTE | 2020-06-23 18:38 | NUR ---
SHIFT SUMMARY PT APPEARS TO BE COMFORTABLE AND FREE OF EXCESSIVE SECRETIONS SINCE LAST TREATED FOR THESE. PT MOTHER LEFT EARLIER IN THE SHIFT AFTER SAYING "GOODBYE". PT STEP MOTHER NOW IN ROOM. NURSING OILING MACHINE OPERATOR INFORMED FAMILY THAT ONLY ONE PERSON CAN STAY OVERNIGHT AND CANNOT BE LEAVING THE ROOM TO GO OUTSIDE AND BACK. FAMILY STATE THEY UNDERSTAND. FAMILY INFORMED BY NURSING SUPERVIOR THAT CONCERNS FOR PT TREATMENT NEEDS TO BE RELAYED THROUGH THE PTS MOTHER, WHO IS THE DECISION MAKER.
--- NOTE | 2020-06-24 02:02 | NUR ---
pt has been really struggling to breathe regardless of medication, suctioning, repositioning. pt goes back extending neck backwards each time making airway more difficult. pt continues to be on 2L o2. eariler in shift pt developed a bright red rash throughout his truck, neck and arms. pt also felt hot to touch. rectal tylenol given. benadryl ordered and given. pt's skin appears much less red and much better shortly after benadryl was given. antibitoics dc'd as this might have been the cause for allergic reaction. pt's throat sounds wet and gurggly before scheduled antibiotics was given. no improvement after atropine drops given. pt appears declining with bilteral hands greyish appearance. Mom contacted at 0105 and made aware. mom already said her goodbyes before. father notified as well shortly. after more suctioning and repositioning, pt's breathing better and does not sound as distressed. family members came in around 0150.
--- NOTE | 2020-06-24 03:20 | NUR ---
PRN SUCTION AND REPOSITIONING PROVIDED
--- NOTE | 2020-06-24 06:20 | NUR ---
HAY STACKER SUMMARY PT HAD A VERY DIFFCULT NIGHT FIRST HALF OF SHIFT. FREQUENT REPOSITIONING PROVIDED BUT PT WAS UNABLE TO KEEP AIRWAY OPEN EVEN WITH ASSITANCE OF FREQUENT SUCTIONING, TURNING ON SIDE, ATROPINE DROPS, OR WITH HOB UP 90 DEGREE ANGLE. PT APPEARED DECLINDING FAST WHILE THIS WAS HAPPENING WHICH WAS WHY FAMILY MEMBER WAS CALLED. PT'S FATHER'S REQUESTED TO HAVE STAFF CALL THEM IF THERE IS ANY CHANGE. AFTER FAMILY MEMBERS WERE CALLED, STAFF FINALLY ABLE TO FIND THE "PERFECT" POSITION FOR PT AND PT HAS SLEPT OKAY SINCE WITHOUT BREATHING ISSUES. PT'S FATHER AND FATHER'S HAD COME SHORTLY AFTER PHONE CALL. FATHER WAS FRUSTRATED NURSE HAD CALLED WHEN PATIENT APPEARS TO BE OKAY NOW EVEN WITH EXPLAINING AT THE TIME WHEN DECLINE SEEMED APPARENT. BOTH FATHER AND FATHER'S WENT HOME. BED ALARM IN PLACE, MOSS PATENT AND DRAINING, CALL LIGHT WITHIN REACH.
--- NOTE | 2020-06-24 09:42 | NUR ---
PT NONRESPONSIVE. BRIEF WAS SOILED WITH URINE, PT CHANGED AND REPOSTIONED. ABX HUNG PER EMAR.
--- NOTE | 2020-06-24 10:37 | NUR ---
PT WAS GIVEN A BED BATH , CATH CHANGED DUE TO LEAKAGE IN THE BED. PT REMAINS NONRESPONSIVE. PT CONTINUES TO FLEX HEAD BACK AND BECAME SLIGHLTY AGITATED WHILE BEING MOVED AROUND. EYES REMAIN DOLL STARE. MORPHINE AND ATIVAN GIVEN WELL ATROPINE. PT WAS SUCTIONED . PT MOVED TO RIGHT SIDE. HANDS AND EXTREMITIES BEGINNING TO SWELL AND FLUID RETAINING IN BUTTOCKS. CLINIMIX RUNNING PER EMAR AND FAMILY.
--- NOTE | 2020-06-24 18:23 | NUR ---
PT CHANGED IN BED. FAMILY PRESENT. COOL CLOTH PLACED ON PTS HEAD .
--- NOTE | 2020-06-25 01:38 | NUR ---
COMFORT: PATIENT SCORES A 5 ON PAIN SCALE. ORAL ROXANOL IS GIVEN. ORAL AND CATH CARE AND T&P GIVEN WITH EMOTIONAL SUPPORT.
--- NOTE | 2020-06-25 01:42 | NUR ---
COMFORT: PATIENT IS RESTLESS, RESPIRATIONS ARE AT 30, SCORING A 5 ON PAIN SCALE. THICK SECRETIONS ARE SUCTIONED. SCOPOLOMINE PATCH IS ON AND ATROPINE GTT ARE GIVEN ALONG WITH ROXANOL.
--- NOTE | 2020-06-25 01:54 | NUR ---
COMFORT: PATIENT SCORES A 5 ON PAIN SCALE. COUGHING BUT UNABLE TO COUGH SECRETIONS UP EFFECTIVELY. ORAL SUCTIONING IS DONE, T&P AND ORAL CARE IS DONE. EMOTIONAL SUPPORT IS GIVEN TO PATIENT ANF FAMILY.
--- NOTE | 2020-06-25 02:35 | NUR ---
COMFORT: PATIENT IS COUGHING UP THICK SECRETIONS REQUIRING SUCTIONING. SCOPOLOMINE PATCH IS IN PLACE, ATROPINE AND MORPHINE IS GIVEN. NO IV ACCESS, DR US IS NOTIFIED AND ORDER FOR ATIVAN 1 MG PO PRN IS OBTAINED.
--- NOTE | 2020-06-25 03:14 | NUR ---
COMFORT: PATIENT IS SCORING 5 ON PAIN SCALE AND CONTINUES TO BE RESTLESS, FAIR EFFECT FROM MORPHINE, ATIVAN IS NOW GIVEN.
--- NOTE | 2020-06-25 07:22 | NUR ---
SHIFT SUMMARY: PATIENT RESPONDS ONLY TO PAINFUL STIMULI, DOES NOT OPEN EYES AND IN NPO. STEP MOTHER IS AT BEDSIDE AND IS VERY UPSET BY LOOSE CONGESTION WHEN PATIENT COUGHS. FAMILY REQUESTS SUCTIONING FREQUENTLY. SPUTUM IS THICK YELLOW. SCORING 5'S ON THE FLACC SCALE, ROXANIOL WAS GIVEN X4 WITH FAIR EFFECT. PATIENT STILL VERY RESTLESS DR ROCK WAS CALLED AND ATIVAN SL PRN WAS ORDER AND GIVEN WITH GOOD EFFECT.
--- NOTE | 2020-06-25 07:43 | NUR ---
pt appears comfortable at this time
--- NOTE | 2020-06-25 09:31 | NUR ---
PTS BREATHING IS LABORED, EYES OPEN GRIMACES WITH REPOSITIONING, GAVE MORPHINE AND ATIVAN AT THIS TIME, PT REPOSITIONED, WILL CONTINUE TO MONITOR AND ASSESS FOR CHANGES
--- NOTE | 2020-06-25 11:37 | NUR ---
PT CONTINUES TO HAVE LABORED BREATHING/ AIR HUNGER, MEDICATED THE PT WITH 20MG ROXINOL AGAIN, GAVE ATROPIN FOR SECRETIONS, APPLIED LIP MMOITURIZER, ELEVATED HEAD OF BED PT SEEMS A LITTLE MORE COMFORTABLE AT THIS TIME
--- NOTE | 2020-06-25 13:31 | NUR ---
PT APPEARS TO BE BREATHING A LITTLE EASIER AT THIS TIME, APPEARS MORE COMFORTABLE, WILL CONTINUE TO MONITOR AND ASSESS FOR CHANGES
--- NOTE | 2020-06-25 14:24 | NUR ---
PT APPEARS TO BE COMFORTABLE AT THIS TIME, APPEARS TO BE BREATHING EASIER AT THIS TIME
--- NOTE | 2020-06-25 14:26 | NUR ---
PT APPEARS TO BE BREATHING EASIER AT THIS TIME, APPEARS TO BE COMFORTABLE AT THIS TIME
--- NOTE | 2020-06-25 17:27 | NUR ---
PT APPEARS TO BE COMFORTABLE AT THIS TIME, THE PT WAS REPOSITIONED, THE PTS GRANDMOTHER CALLED TO CHECK ON THE PT, WILL CONTINUE TO MONIOTR AND ASSESS FOR CHANGES
--- NOTE | 2020-06-25 19:13 | NUR ---
PT APPEARS TO BE COMFORTABLE AT THIS TIME, NO OTHER CHANGES NOTICED THIS SHIFT, REPORT GIVEN TO NOC NURSE
--- NOTE | 2020-06-25 20:56 | NUR ---
COMFORT: PATIENT SCORES 4 ON FLACC PAIN SCALE. MORPHINE IS GIVEN WITH PERSONAL CARE, CATH CARE AND T&P
--- NOTE | 2020-06-25 22:46 | NUR ---
COMFORT: PATIENT HAD GOOD EFFECT FROM ORAL MORPHINE. PERSONAL CARE AND T&P ARE GIVEN.
--- NOTE | 2020-06-26 01:43 | NUR ---
COMFORT: PATIENT IS RESTING QUIETLY WITH EYES CLOSED. OPENS THEM WITH T&P. NO S/S OF PAIN AT THIS TIME, HAS HAD GOOD EFFECT FROM MORPHINE. T&P AND PERSONAL CARE GIVEN.
--- NOTE | 2020-06-26 03:52 | NUR ---
COMFORT: PATIENT IS RESTLESS, ANXIOUS AND SCORING 5 ON FLACC SCALE. PRN ATIVAN IS GIVEN AT THIS TIME.
--- NOTE | 2020-06-26 05:30 | NUR ---
COMFORT: PATIENT SCORES A 2 ON FLACC. RESTLESS AND TENSE WITH T&P. LARGE AMOUNT OF SECRETIONS. RESPIRATIONS AREN 28. MORHINE AND ATROPINE GTT ARE GIVEN ALONG WITH PERSONAL CARE.
--- NOTE | 2020-06-26 06:33 | NUR ---
COMFORT CARE: PATIENT IS UNRESPONSIVE, THICK YELLOW SPUTUM IS SUCTIONED FROM BACK OF THROAT. PATIENT IS UNABLE TO COUGH SECRETIONS UP AND OUT. MOSS IS PATENET FOR LARGE AMOUNTS OF URINE. PAIN AND ANXIETY ARE WELL CONTROLED WITH PRN ATIVAN X1 AND MORPHINE X2. 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 BED ALARM IS ON FOR SAFETY.
--- NOTE | 2020-06-26 08:17 | NUR ---
PT HAS LABORED BREATHING THIS AM, WET BREATH SOUNDS WILL MEDICATE WITH ATIVAN MORPHINE AND ATROPINE, AND REPOSITION
--- NOTE | 2020-06-26 10:17 | NUR ---
PT IN SUPINE POSITION WET LABORED BREATHING, GAVE MORPHINE 20MG, FAMILY IS AT THE BEDSIDE, PT IS ON 2L/MIN O2
--- NOTE | 2020-06-26 14:43 | NUR ---
PT CONTINUES WITH LABORED WET BREATHING GAVE ATIVAN AND MORPHINE, SUCTIONED THE PT, THE PT BITES DOWN ON THE SUCTION MAKING IT DIFFICULT TO SUCTION, PTS FAMILY WAS IN TO SEE HIM TODAY
--- NOTE | 2020-06-26 14:48 | NUR ---
PT IS IN UPRIGHT SUPINE POSITION AT THIS TIME AT TIMES HAS A VERY LOOSE WET COUGH, ATTEMPTED SUCTION BUT THE PT BIT DOWN ON THE SUCTION
--- NOTE | 2020-06-26 16:08 | NUR ---
gave morphine and atropine, preformed mouth care and suction as much as possible, pt continues to bite down on the suction at times, will continue to monitor and assess for changes
--- NOTE | 2020-06-26 18:35 | NUR ---
PT MEDICATED WITH MORPHINE AND ATIVAN AT THIS TIME, REPOSITIONED AT THISN TIME
--- NOTE | 2020-06-26 19:26 | NUR ---
COMFORT: PATIENT IS RESTING WITH EYE'S CLOSED. HAS HAD GOOD EFFECT FROM MORPHINE. T&P IS GIVEN ALONG WITH MOUTH CARE.
--- NOTE | 2020-06-26 21:33 | NUR ---
COMFORT: PATIEMNT IS RESTING WITH EYES CLOSED. COUGHING OCCASSIONALLY, HARSH LOOSE COUGH, UNABLE TOP COUGH UP SECRETIONS. T&P, SUCTIONING, ORAL CARE AND PERSONAL CARE GIVEN. BED ALARM IS ON FOR SAFETY.
--- NOTE | 2020-06-26 23:27 | NUR ---
COMFORT: PATIENT IS RESTING QUIETLY, RESPIRATIONS ARE EASY AT 23. T&P AND PERSONAL CARE GIVEN.
--- NOTE | 2020-06-27 01:38 | NUR ---
COMFORT: PATIENT IS RESTING QUIETLY WITH EYES CLOSED. RESPIRATIONA ARE EASY AT 22.
--- NOTE | 2020-06-27 04:09 | NUR ---
COMFORT: RESTING QUIETLY WITH EYES CLOSED. LINEN ARE CHANGED. T&P AND PERSONAL CARE ARE GIVEN.
--- NOTE | 2020-06-27 06:18 | NUR ---
COMFORT: PATIENT IS RESTING COMFORTABLY. NO S/S OF PAIN OR RESPIRATORY DISTRESS. 02 IS ON NC AT 2L. T&P AND PERSONAL CARE ARE GIVEN. BED ALARM IS ON FOR SAFETY.
--- NOTE | 2020-06-27 10:38 | NUR ---
Comfort Care Visit Pt resting in bed and is non responsive. This RN accopanied by nursing instructor Svetlana. Svetlana offers wet wash cloth and cleans what appears to be small amount of vomit around his mouth and chin. Pt appears comfortable wit no S/S of distress at this time. Spoke with Bedside RN Niecy and discussed case. No concerns reported at this time. Palliative Care will remain available.
--- NOTE | 2020-06-27 16:48 | NUR ---
Spiritual care note: Several visits with Jenaro today. No family present. Jenaro's eyes are open, but he is unresponsive to voice/touch. Breaths are even and unlabored. Breathing through his mouth, head tilted way back. He does not appear to be in any distress. Prayer provided at [facility]. I will remain available.
--- NOTE | 2020-06-27 19:41 | NUR ---
SHIFT SUMMARY PT RESTING QUIETLY AT START OF SHIFT, RESP E/U. 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 PT DOES NOT RESPOND TO VERBAL OR TACTILE STIMULI. NO VISITORS TODAY. FAMILY CALLED TO CK ON PT. PT REPOSITIONED FOR COMFORT, BUT DOES NOT LIKE TO LAY DOWN OR HAVE ANY ORAL CARE DONE. PT CLAMPS DOWN TEETH VERY HARD ON ANYTHING PUT IN HIS MOUTH AND WILL NOT ALLOW HIS MOUTH TO BE CLEANED. MOSS TO GRAVITY WITH CLOUDY ORANGE URINE. DR STEVEN IN TO SEE PT THIS AM. NO NEW ORDERS. PT BECOMING SLIGHTLY AGITATED THIS EVENING; MEDICATED PER EMAR WITH ROXANOL AND ATIVAN. PT CALMER AT THIS TIME. REPORT GIVEN TO ONCOMING RN.
--- NOTE | 2020-06-28 07:42 | NUR ---
SHIFT SUMMARY COMFORT CARE. NO ACUTE CHANGES THIS SHIFT. NONVERBAL. NONRESPONSIVE. MEDICATED 3X c 20MG ROXANOL TO MAINTAIN COMFORT. ORAL CARE PERFORMED. REPOSITIONED PRN. NO SEIZURES NOTICED. MOSS PATENT & DRAINING. CALL LIGHT IN REACH.
--- NOTE | 2020-06-28 09:09 | NUR ---
Pt resting in bed with his eyes opened. Pt is non responsive. Pt appears dyspneic as evidenced by work or breathing, use of accessory muscles, and respiratory rate. Spoke with Bedside RN Niecy, discussed case and reviewed comfort medications. Palliative Care will remain available.
--- NOTE | 2020-06-28 14:51 | NUR ---
Spiritual care visit conducted. Upon request of staff and agreement of family present, I provided a prayer of committing patient into the Lord's care. Family voices appreciation, Personal Care Attendantdnenise Orr is present with family. Because of her therapeutic alliance with the family, I leave them to her ministry.
--- NOTE | 2020-06-28 15:27 | NUR ---
Spiritual care note: Informed by palliative care RN that Jenaro was nearing end-of-life. Estate Manager Seymour Montgomery was in room providing prayer of comendation while Jenaro's father and step-mom waited outside. Spoke at lenth with dad, Boubacar. He expressed numerous frustrations with Jenaro's mom and some rather wild notions of the afterlife. I listened with compassion and offered gentle bereavement industrial relations counselor. Boubacra is leaving final arrangements to Jenaro's mom Ruba.
--- NOTE | 2020-06-28 16:36 | NUR ---
PT RESTING QUIETLY AT START OF SHIFT. RESP E/U. MEDICATED PRIOR TO START OF SHIFT. PT LATER BECOMING RESTLESS WITH AIR HUNGER. MEDICATED PER EMAR. CALMED BREIFLY. ABLE TO PROVIDE ORAL CARE W/O PT BITING DOWN ON SUCTION SWABS TODAY. PALLIATIVE CARE HERE TO CHK ON PT. PT NOTED TO STILL APPEAR RESTLESS WITH AIR HUNGER AGAIN. ROXANOL GIVEN AGAIN PER EMAR. PT APPEARED TO CALM AFTER THAT, BUT SOON BEGAN AGONAL BREATHING. FAMILY NOTIFIED OF PT STARTING TO DECLINE. FAMILY LATER ARRIVED AT BS. FAMILY REQUESTING ATIVAN AND ROXANOL WHEN AVAILABLE. GIVEN PER EMAR. FAMILY REMAINED AT BS UNTIL PT PASSED AT 1413. [facility] RN, LACIE ASSISTED FAMILY WITH DETAILS AND NOTIFIED DR TWIN STEVEN. LACIE RN ALSO ASSISTED WITH FINAL ARRANGEMENTS PER FAMILY.
--- NOTE | 2020-06-28 19:26 | NUR ---
REVIEWED INFORMATION TO ANSWER A QUESTION FOR PT'S GRANDMOTHER ANA WHO IS ON HIS HIPPA FORM TO RECIEVE INFORMATION.
== END 2020-06-28 14:13 | DRG 917 ==
LOC: ER 03:04 → EDBD 03:04 → ICUE 05:41 → ICUW 05:41 → ICUE 06:30 → MEDS 06-23 15:52
PROVIDERS: Emergency Medicine; Internal Medicine Critical Care Medicine; Internal Medicine Pulmonary Disease; Pharmacist; Psychiatry & Neurology Neurology; ADMIT Internal Medicine
PROC: 5A1955Z Respiratory Ventilation, Greater than 96 Consecutive Hours (ICD-10-PCS; principal; 2020-06-05)
PROC: 02HV33Z Insertion of Infusion Device into Superior Vena Cava, Percutaneous Approach (ICD-10-PCS; 2020-06-05)
DX: T43.621A Poisoning by amphetamines, accidental (unintentional), initial encounter (principal); A41.9 Sepsis, unspecified organism; J96.01 Acute respiratory failure with hypoxia; G93.6 Cerebral edema; J15.212 Pneumonia due to Methicillin resistant Staphylococcus aureus; R65.20 Severe sepsis without septic shock; G93.1 Anoxic brain damage, not elsewhere classified; E87.2 Acidosis; M62.82 Rhabdomyolysis; R40.3 Persistent vegetative state; N17.9 Acute kidney failure, unspecified; I46.9 Cardiac arrest, cause unspecified; Z87.891 Personal history of nicotine dependence; F15.10 Other stimulant abuse, uncomplicated; Z51.5 Encounter for palliative care; R56.9 Unspecified convulsions; R50.9 Fever, unspecified; Z20.822 Contact with and (suspected) exposure to COVID-19; I46.8 Cardiac arrest due to other underlying condition; Y92.9 Unspecified place or not applicable
CPT/HCPCS: 0241U; 31720; 36415; 36600; 51702; 70450; 71045; 71260; 74177; 80047; 80048; 80053; 80069; 80185; 80202; 81001; 82550; 82553; 82803; 82947; 83605; 83690; 83735; 84100; 84484; 85014; 85025; 87070; 87077; 87086; 87147; 87186; 87205; 93005; 93010; 93306; 93308; 93321; 94002; 94003; 94640; 94760; 95819; 96361-59; 96374-59; 96375-59; 99285-25; A9270; C1751; C9113; J0692; J0696; J1165; J1200; J1650; J1953; J2060; J2270; J2543; J2700; J2704; J2930; J3010; J3370; J7030; J7050; J7070; Q9967